=== PATIENT | female | born 1935 | race Caucasian/White ===

== ENCOUNTER 2017-10-01 13:13 | Inpatient (IN) ==
[2017-10-01 13:59] LABS: Microscopic, Urine URINE MICROSCOPIC (MICROSCOPIC)
[2017-10-01 13:59] LABS: Basophils % 0.5 % (0.1-2.0); Eosinophils # 0.1 K/mm3 (0.0-0.4); Eosinophils % 1.9 % (0.1-12.0); Hematocrit 33.3 % (37.0-47.0); Hemoglobin 10.9 g/dL (12.2-16.2); Lymphocytes # 0.9 K/mm3 (0.7-4.5); Lymphocytes % 13.1 K/mm3 (10-50); Mean Corpuscular HGB Conc 32.6 g/dL (31.8-35.4); Mean Corpuscular Hemoglobin 26.4 pg (27.0-31.2); Mean Corpuscular Volume 80.8 fl (81-99); Monocytes # 0.5 K/mm3 (0.1-1.0); Monocytes % 6.9 % (1.7-9.3); Neutrophils % 77.5 % (37.0-80.0); Platelet Count 251 K/mm3 (142-424); Red Blood Count 4.13 M/mm3 (4.20-5.40); Red Cell Distribution Width 13.6 % (11.5-17.5); White Blood Count 6.5 K/mm3 (4.8-10.8)
[2017-10-01 14:00] LABS: Appearance,Urine CLEAR (Clear); Bilirubin,Urine Negative (Negative); Blood, Urine Negative (Negative); Color,Urine YELLOW (Yellow); Glucose,Urine (UA) Negative (Negative); Ketones,Urine Negative (Negative); Leukocyte Esterase,Urine Negative (Negative); Protein,Urine Negative (Negative); Urobilinogen,Urine 0.2 EU/dl (0.2)
[2017-10-01 14:12] LABS: Albumin Level 3.2 gm/dL (3.4-5.0); Albumin/Globulin Ratio 0.9 (1.1-1.8); Anion Gap 12.2 mEq/L (5-15); Bilirubin,Total 0.3 mg/dL (0.2-1.0); Calcium 9.4 mg/dL (8.5-10.1); Globulin 3.6 gm/dl (1.3-3.2); Potassium 3.2 mmoL/L (3.5-5.1); Total Protein,Serum 6.8 gm/dL (6.4-8.2)
[2017-10-01 14:13] LABS: Bacteria,Urine 1+ /lpf; Squamous Epithelial Cell,Urine Occasional #/hpf (0-5); WBC,Urine Occasional #/hpf (0-3)
--- NOTE | 2017-10-01 14:40 | Emergency Department Note ---
ED Disposition Clinical Impression: Hyponatremia, Weakness, Hypokalemia Anemia Qualifiers: Anemia type: other cause Other causes of anemia: other cause, not classified Qualified Code(s): D64.89 - Other specified anemias Disposition: Admitted As Inpatient Condition on Discharge: Fair Time of Disposition: 14:39 - Critical Care Critical Care Time: No Attestation: On 10/01/17, the high probability of a clinically significant, sudden or life threatening deterioration of the following system(s) required my full and direct attention, intervention and personal management. The time I documented below is in addition to time spent performing reported procedures but includes the following listed in this critical care notation. Medical Decision Making - Medical Records Medical records reviewed: Yes: I reviewed the patient's medical records. - Rogelio Inquiry Pt receiving controlled substance: No Vital Signs: 10/01/17 13:18 10/01/17 14:51 10/01/17 15:05 Temperature 98.5 F 98.7 F 98.5 F Temperature Source Oral Oral Oral Pulse Rate 61 Pulse Rate [Right Brachial] 70 72 Respiratory Rate 20 18 20 Blood Pressure 130/65 Blood Pressure [Right Arm] 160/65 148/57 Blood Pressure Mean [Right Arm] 96 87 Blood Pressure Source Automatic Cuff Blood Pressure Source [Right Arm] Automatic Cuff Automatic Cuff Blood Pressure Position Sitting Blood Pressure Position [Right Arm] Supine Sitting 02 Sat by Pulse Oximetry 98 97 Oxygen Delivery Method Room Air Room Air Room Air - Lab Data Lab results reviewed: Yes: I reviewed the patient's lab results. Lab Results 10/01/17 13:45: WBC 6.5, RBC 4.13 L, Hgb 10.9 L, Hct 33.3 L, MCV 80.8 L, MCH 26.4 L, MCHC 32.6, RDW 13.6, Plt Count 251, MPV 8.0, Neut % (Auto) 77.5, Lymph % (Auto) 13.1, [place] % (Auto) 6.9, Eos % (Auto) 1.9, Baso % (Auto) 0.5, Neut # ( Auto) 5.0, Lymph # (Auto) 0.9, [place] # (Auto) 0.5, Eos # (Auto) 0.1, Baso # (Auto ) 0.0 10/01/17 13:45: Sodium 121 L, Potassium 3.2 L, Chloride 79 L, Carbon Dioxide 33 H, Anion Gap 12.2, BUN 15 D, Creatinine 0.73 D, Estimated Creat Clear 45, Estimated GFR 76, Est GFR ( Amer) 92 D, Glucose 121 H, Calcium 9.4, Total Bilirubin 0.3, AST 25, ALT 20, Alkaline Phosphatase 95, Total Protein 6.8 , Albumin 3.2 L, Globulin 3.6 H, Albumin/Globulin Ratio 0.9 L 10/01/17 13:45: PT 28.9 H, INR 2.65 H, APTT 42.9 H 10/01/17 13:45: B-Natriuretic Peptide 611 H 10/01/17 13:55: Urine Color Yellow, Urine Appearance Clear, Urine pH 7.0, Ur Specific [place] 1.010, Urine Protein Negative, Urine Glucose (UA) Negative, Urine Ketones Negative, Urine Blood Negative, Urine Nitrate Negative, Urine Bilirubin Negative, Urine Urobilinogen 0.2, Ur Leukocyte Esterase Negative, Urine WBC Occasional, Ur Squamous Epith Cells Occasional, Urine Bacteria 1+ Result diagrams: 10/01/17 13:45 10/01/17 13:45 Orders (Tests/Meds): ED MEDICATIONS Generic Name Dose Route Start Last Admin Trade Name Julesq PRN Reason Stop Dose Admin Aspirin 81 mg 10/02/17 09:00 Aspirin 81mg Enteric Coated Tablet PO 11/01/17 08:59 DAILY KIM Diltiazem HCl 240 mg 10/01/17 21:00 Cardizem Er 240mg Capsule PO 10/31/17 20:59 BID KIM Glimepiride 2 mg 10/02/17 09:00 Amaryl 2mg Tablet PO 11/01/17 08:59 DAILY KIM Isosorbide Mononitrate 60 mg 10/01/17 21:00 Imdur 60mg Er Tablet PO 10/31/17 20:59 BID KIM Levothyroxine Sodium 75 mcg 10/02/17 09:00 Synthroid 75mcg (0.075mg) Tablet PO 11/01/17 08:59 DAILY KIM Loratadine 10 mg 10/02/17 09:00 Claritin 10mg Tablet PO 11/01/17 08:59 DAILY KIM Lorazepam 0.5 mg 10/01/17 21:00 Ativan 0.5mg Tablet PO 10/31/17 20:59 HS KIM Metformin HCl 500 mg 10/01/17 17:30 10/01/17 16:40 Metformin 500mg Tablet PO 10/31/17 17:29 500 mg BIDWM KIM Administration Nitroglycerin 0.4 mg 10/01/17 15:08 Nitrostat 0.4mg Sl Tablet SL 10/31/17 15:07 [id number] PRN Chest Pain Pat Own Med 10 mg 10/01/17 21:00 Bisoprolol 10 Mg PO 10/31/17 20:59 BID KIM Pat Own Med 150 mg 10/02/17 21:00 Ranitidine 150 Mg PO 11/01/17 20:59 HS KIM Pat Own Med Areds 1 each 10/01/17 21:00 2 PO 10/31/17 20:59 BID [facility] Warfarin Sodium 2 mg 10/05/17 11:00 Coumadin 2mg Tablet PO 11/04/17 10:59 [id number] [facility] Warfarin Sodium 3 mg 10/02/17 11:00 Coumadin 2mg Tablet PO 11/01/17 10:59 [id number] [facility] Zolpidem Tartrate 10 mg 10/01/17 17:13 Ambien 10mg Tablet PO 10/31/17 17:12 HSP PRN Sleep Discontinued Medications Generic Name Dose Route Start Last Admin Trade Name Freq PRN Reason Stop Dose Admin Zolpidem Tartrate 10 mg 10/01/17 15:08 Ambien 10mg Tablet PO 10/31/17 15:07 ONCE [facility] - Physician Consults Physician Consulted: Dr Osborne covering for Dr Tejeda Time: 14:40 Reason -: Admission, Pt condition - Reevaluation(s) Time: 14:39 Reevaluation #1: On reevaluation patient appears medically stable, no acute distress. She will be admitted for reevaluation of her hyponatremia and inpatient treatment. Weakness HPI - General Chief complaint: Weakness Stated complaint: weakness nausea not eating Time Seen by Provider: 10/01/17 13:35 Mode of Arrival: Family Vehicle Limitations: No Limitations Description of Symptoms (Recalled from ER Triage Doc. by RN): C/O WEAKNESS, NAUSEA AND POOR APPETITE. SEEN BY DR TEJEDA THURSDAY AND HAD LAB WORK. DR SANTOS CALLED HER AND TOLD HER SHE HAD LOW SODIUM AND TO STOP HER ENTRESTO AND HAVE REPEAT LAB WORK IN TWO WEEKS - History of Present Illness HPI Narrative: Patient is seen Dr. Tejeda on Thursday for same symptoms, which are lethargy, decreased appetite, as family was suspected patient could be again hyponatremic. Patient has a history of similar episodes, in the past, being hospitalized with severe hyponatremia in March 2017. Dr. Tejeda instructed the patient to discontinue Entresto on Thursday, because of the blood work obtained at that time. As patient feels no better her family decided to bring her to the emergency room for additional workup. The past 2 days the patient has not eaten any solid food or liquids, according to family. MD Complaint: generalized weakness Onset (ago): week(s) (1) Duration: constant Location: generalized Severity scale (1-10): 8 Associated symptoms: denies other symptoms - Related Data Home Medications Medication Instructions Recorded Confirmed aspirin 81 mg tablet,delayed 81 mg PO DAILY 05/04/17 10/01/17 release glimepiride 2 mg tablet 2 mg PO DAILY 05/04/17 10/01/17 isosorbide mononitrate ER 60 mg 60 mg PO BID tab 05/04/17 10/01/17 tablet,extended release 24 hr levothyroxine 75 mcg tablet 75 mcg PO DAILY tab 05/04/17 10/01/17 lorazepam 0.5 mg tablet 0.5 mg PO HS 05/04/17 10/01/17 warfarin 2 mg tablet 2 mg PO MO 05/04/17 10/01/17 zolpidem 10 mg tablet 10 mg PO DAILYP PRN tab 05/04/17 10/01/17 bisoprolol fumarate 10 mg tablet 10 mg PO BID tab 07/21/17 10/01/17 metformin 500 mg tablet 500 mg PO BID 07/21/17 10/01/17 Ergocalciferol (Vitamin D2) 400 unit PO DAILY 10/01/17 10/01/17 [Vitamin D] Loratadine [Claritin 10mg Tablet] 10 mg PO DAILY 10/01/17 10/01/17 Nitroglycerin [Nitrostat 0.4mg SL 0.4 mg SL DIRECTED PRN 10/01/17 10/01/17 Tablet] Vit A/Vit C/Vit E/Zinc/Copper 1 each PO BID 10/01/17 10/01/17 [Preservision Areds Softgel] dilTIAZem HCl [Diltiazem 240mg 240 mg PO BID 10/01/17 10/01/17 24Hr ER Cap] raNITIdine HCl [Ranitidine HCl] 150 mg PO HS 10/01/17 10/01/17 Allergies Allergy/AdvReac Type Severity Reaction Status Date / Time clopidogrel [From Plavix] Allergy Unknown Verified 08/03/17 15:20 Iodinated Contrast Media - Allergy Unknown Verified 08/03/17 15:20 Oral and [Iodinated Contrast Media - IV Dye] Penicillins Allergy Unknown Verified 08/03/17 15:20 tolmetin [From Tolectin] Allergy Unknown Verified 08/03/17 15:20 [facility] [place] History I have reviewed the patient's past medical history: Yes Medical History: Reports:: Atrial Fibrillation, Cancer (BREAST CA), Congestive Heart Failure, Coronary Artery Disease, Diabetes Mellitus Type 2, Hypertension, Internal Pacemaker Denies:: Seizures Other Medical History: Denies: Blood Transfusion Reaction Laterality Cases: Right: Total Hip Replacement Other Surgeries: Yes: Cholecystectomy, Hysterectomy-Total, Pacemaker, Other (CEA , stents) Comment: cholecystectomy - Social History Smoking Status: Never smoker Alcohol Intake: never Alcohol Intake Frequency:: other - Psychiatric History Expresses thoughts of harming self/others: None Suicide Plan Description: No Plan ROS Obtained: Yes All systems reviewed & no additional complaints, Yes Systems reviewed as appropriate & no additional complaints - Constitutional Constitutional: Reports fatigue, Reports lethargy, Reports malaise Physical Exam - General General appearance: alert, in no apparent distress - Head Head exam: atraumatic, normocephalic, normal inspection - Neck Neck exam: Present: normal inspection, full ROM, trachea midline. Absent: meningismus, lymphadenopathy - Chest Chest inspection: Present: normal inspection, symmetric chest wall rise. Absent : tenderness - Respiratory Respiratory exam: Present: normal lung sounds bilaterally. Absent: respiratory distress - Cardiovascular Cardiovascular exam: Present: regular rate, normal rhythm. Absent: JVD - Abdominal Exam Abdominal exam: Present: soft, normal bowel sounds. Absent: distention, tenderness, guarding - Extremities Exam Extremities exam: Present: normal inspection, full ROM, normal capillary refill. Absent: calf tenderness - Back Exam Back exam: Present: normal inspection. Absent: tenderness - Neurological Exam Neurological exam: Present: alert, oriented X3 - Psychiatric Psychiatric exam: Present: normal affect, normal mood - Skin Skin exam: Present: warm, dry, intact, normal color
[2017-10-01 15:04] LABS: INR 2.65 (0.9-1.1); Prothrombin Time 28.9 seconds (9.4-11.8)
[2017-10-01 15:09] LABS: Activated Partial Thrombo Time 42.9 seconds (23.6-34.0)
--- NOTE | 2017-10-01 17:10 | History & Physical Report ---
*Admission Date: 10/01/17 *Chief complaint: Weakness and nausea *History of present illness: 82-year-old female presented to the emergency department today with worsening and weakness and nausea that initially developed 2 weeks ago. Patient had been seen by Dr. Che on Thursday of this week and was found to be hyponatremic. At that time she was advised to use stopped taking her Entresto. The patient discontinued this medicine as of Thursday but continued to feel progressively weaker with poor appetite and nausea. She presented to the emergency department where her hyponatremia has been unchanged. She has been admitted for observation. Patient is accompanied by her daughter who states the patient identified almost 2 weeks ago that she thought her sodium was low due to her symptoms of weakness, nausea, anorexia. The patient has a history of heart failure but denies any change in her level of dyspnea and states lower extremity swelling has been quite good recently. Upon reviewing her medicines the patient claims to be taking both furosemide and bumetanide. [facility] History I have reviewed the patient's past medical history: Yes Medical History: Reports:: Atrial Fibrillation, Cancer (BREAST CA), Congestive Heart Failure, Coronary Artery Disease, Diabetes Mellitus Type 2, Hypertension, Internal Pacemaker Denies:: MRSA, Seizures Other Medical History: Denies: Blood Transfusion Reaction Laterality Cases: Left: Mastectomy, Right: Arthroscopy Hip, Arthroscopy Knee, Cataract, Total Hip Replacement Other Surgeries: Yes: Cholecystectomy, Hysterectomy-Total, Pacemaker, Other (CEA , stents) Amputation: No Fractures: No - *Social History Educational Level: Completed High School Smoking Status: Never smoker Alcohol Intake: never Alcohol Intake Frequency:: other Occupational Status: retired Housing: house Household Members: none - Psychiatric History Expresses thoughts of harming self/others: None Suicide Plan Description: No Plan *Family Hx:: No significant family history Review of Systems - Review of Systems Review of systems:: pertinent systems reviewed and negative unless documented below - Constitutional Reports anorexia, Reports weakness, Denies chills - *Cardiovascular Denies chest pain, Denies chest pain at rest, Denies generalized swelling - *Respiratory Reports cough, Reports shortness of breath Meds Home Medications Medication Instructions Recorded Confirmed Type aspirin 81 mg tablet,delayed 81 mg PO DAILY 05/04/17 10/01/17 History release glimepiride 2 mg tablet 2 mg PO DAILY 05/04/17 10/01/17 History isosorbide mononitrate ER 60 mg 60 mg PO BID tab 05/04/17 10/01/17 History tablet,extended release 24 hr levothyroxine 75 mcg tablet 75 mcg PO DAILY tab 05/04/17 10/01/17 History lorazepam 0.5 mg tablet 0.5 mg PO HS 05/04/17 10/01/17 History warfarin 2 mg tablet 2 mg PO MO 05/04/17 10/01/17 History zolpidem 10 mg tablet 10 mg PO DAILYP PRN tab 05/04/17 10/01/17 History bisoprolol fumarate 10 mg tablet 10 mg PO BID tab 07/21/17 10/01/17 History metformin 500 mg tablet 500 mg PO BID 07/21/17 10/01/17 History Ergocalciferol (Vitamin D2) 400 unit PO DAILY 10/01/17 10/01/17 History [Vitamin D] Loratadine [Claritin 10mg Tablet] 10 mg PO DAILY 10/01/17 10/01/17 History Nitroglycerin [Nitrostat 0.4mg SL 0.4 mg SL DIRECTED PRN 10/01/17 10/01/17 History Tablet] Vit A/Vit C/Vit E/Zinc/Copper 1 each PO BID 10/01/17 10/01/17 History [Preservision Areds Softgel] dilTIAZem HCl [Diltiazem 240mg 240 mg PO BID 10/01/17 10/01/17 History 24Hr ER Cap] raNITIdine HCl [Ranitidine HCl] 150 mg PO HS 10/01/17 10/01/17 History Allergies Allergy/AdvReac Type Severity Reaction Status Date / Time clopidogrel [From Plavix] Allergy Unknown Verified 08/03/17 15:20 Iodinated Contrast Media - Allergy Unknown Verified 08/03/17 15:20 Oral and [Iodinated Contrast Media - IV Dye] Penicillins Allergy Unknown Verified 08/03/17 15:20 tolmetin [From Tolectin] Allergy Unknown Verified 08/03/17 15:20 Exam Vital signs and Labs for Last 24 Hours: Temp Pulse Resp BP Pulse Ox 97.9 F 68 20 160/73 98 10/01/17 15:21 10/01/17 15:21 10/01/17 15:21 10/01/17 15:21 10/01/17 15:21 Laboratory Results - last 24 hr 10/01/17 13:45: WBC 6.5, RBC 4.13 L, Hgb 10.9 L, Hct 33.3 L, MCV 80.8 L, MCH 26.4 L, MCHC 32.6, RDW 13.6, Plt Count 251, MPV 8.0, Neut % (Auto) 77.5, Lymph % (Auto) 13.1, [place] % (Auto) 6.9, Eos % (Auto) 1.9, Baso % (Auto) 0.5, Neut # ( Auto) 5.0, Lymph # (Auto) 0.9, [place] # (Auto) 0.5, Eos # (Auto) 0.1, Baso # (Auto ) 0.0 10/01/17 13:45: Sodium 121 L, Potassium 3.2 L, Chloride 79 L, Carbon Dioxide 33 H, Anion Gap 12.2, BUN 15 D, Creatinine 0.73 D, Estimated Creat Clear 45, Estimated GFR 76, Est GFR ( Amer) 92 D, Glucose 121 H, Calcium 9.4, Total Bilirubin 0.3, AST 25, ALT 20, Alkaline Phosphatase 95, Total Protein 6.8 , Albumin 3.2 L, Globulin 3.6 H, Albumin/Globulin Ratio 0.9 L 10/01/17 13:45: PT 28.9 H, INR 2.65 H, APTT 42.9 H 10/01/17 13:45: B-Natriuretic Peptide 611 H 10/01/17 13:55: Urine Color Yellow, Urine Appearance Clear, Urine pH 7.0, Ur Specific [place] 1.010, Urine Protein Negative, Urine Glucose (UA) Negative, Urine Ketones Negative, Urine Blood Negative, Urine Nitrate Negative, Urine Bilirubin Negative, Urine Urobilinogen 0.2, Ur Leukocyte Esterase Negative, Urine WBC Occasional, Ur Squamous Epith Cells Occasional, Urine Bacteria 1+ 10/01/17 16:34: POC Glucose 111 H I & O for Last 24 hours: Intake & Output 09/29/17 09/30/17 10/01/17 10/02/17 11:59 11:59 11:59 11:59 Weight 155 lb 4 oz Narrative: Pleasant elderly female in no distress. She is dressed in her pajamas. She looks quite comfortable. Speech is fluent and conversant. Oropharynx is moist. Neck is without any lymphadenopathy or jugular venous distention. Lungs are clear. Heart has a regular rate and rhythm. Abdomen is soft and nontender. Extremities have no edema this evening. H&P: Result - Labs Labs: Short CBC 10/01/17 Range/Units 13:45 WBC 6.5 (4.8-10.8) K/mm3 Hgb 10.9 L (12.2-16.2) g/dL Hct 33.3 L (37.0-47.0) % Plt Count 251 (142-424) K/mm3 BMP 10/01/17 13:45 Sodium 121 L Potassium 3.2 L Chloride 79 L Carbon Dioxide 33 H BUN 15 D Creatinine 0.73 D Glucose 121 H Calcium 9.4 Liver Function 10/01/17 Range/Units 13:45 Total Bilirubin 0.3 (0.2-1.0) mg/dL AST 25 (15-37) U/L ALT 20 (12-78) U/L Alkaline Phosphatase 95 (46-116) U/L Albumin 3.2 L (3.4-5.0) gm/dL Urine 10/01/17 Range/Units 13:55 Urine Color Yellow (Yellow) Urine Appearance Clear (Clear) Urine pH 7.0 (5.0-8.5) Ur Specific [place] 1.010 (1.005-1.030) Urine Protein Negative (Negative) Urine Glucose (UA) Negative (Negative) Assessment and Plan (1) Hyponatremia Current visit: Yes Status: Acute Category: Medical Code(s): E87.1 - Hypo- osmolality and hyponatremia (2) Weakness Current visit: Yes Status: Acute Category: Medical Code(s): R53.1 - Weakness - Assessment and plan all Dx Assessment and Plan for all problems:: Patient has been admitted for monitoring of worsening symptoms and repeat sodium in the morning. She will be ordered home medicines except diuretics at this time and her Entresto.
[2017-10-02 07:10] LABS: Anion Gap 8.9 mEq/L (5-15); Calcium 9.1 mg/dL (8.5-10.1)
[2017-10-02 07:13] LABS: INR 2.46 (0.9-1.1); Prothrombin Time 26.8 seconds (9.4-11.8)
[2017-10-02 07:17] LABS: Potassium 2.9 mmoL/L (3.5-5.1)
--- NOTE | 2017-10-02 07:32 | Pharmacy Consult Notes ---
[facility] Pharmacy VTE Monitoring - Patient Demographics Admission date: 10/01/17 Report Date: 10/02/17 Time: 07:32 Allergies/Adverse Reactions: Patient Allergies clopidogrel [From Plavix] Allergy (Unknown, Verified 08/03/17 15:20) Iodinated Contrast Media - Oral and [Iodinated Contrast Media - IV Dye] Allergy (Unknown, Verified 08/03/17 15:20) Penicillins Allergy (Unknown, Verified 08/03/17 15:20) tolmetin [From Tolectin] Allergy (Unknown, Verified 08/03/17 15:20) Height: 1.52 m Weight: 71.242 kg Patient Problems: Current Active Problems Hyponatremia (Acute) Weakness (Acute) Hypokalemia (Acute) Anemia (Acute) - VTE Risk Labs: VTE Related Lab Results Hgb 10.9 g/dL (12.2-16.2) L 10/01/17 13:45 Hct 33.3 % (37.0-47.0) L 10/01/17 13:45 Plt Count 251 K/mm3 (142-424) 10/01/17 13:45 PT 26.8 seconds (9.4-11.8) H 10/02/17 06:23 INR 2.46 (0.9-1.1) H 10/02/17 06:23 APTT 42.9 seconds (23.6-34.0) H 10/01/17 13:45 BUN 11 mg/dL (7-18) D 10/02/17 06:23 Creatinine 0.55 mg/dL (0.55-1.02) D 10/02/17 06:23 Estimated Creat Clear 47 mL/min (0-300) 10/02/17 06:23 Was VTE Risk Assessment Performed: Yes VTE Score: 1 - Prophylaxis VTE Prophylaxis Ordered?: Yes Types of VTE Prophylaxis: Pharmacological Pharmacologic Type: Warfarin - VTE Diagnosis Confirmed Treatment or plan recommended: Continue Current Treatment
--- NOTE | 2017-10-02 08:07 | Progress Note ---
Internal Medicine - PN: Subj *Date: 10/02/17 *Time: 08:05 Interval history: Patient continues to feel somewhat weak, but denies fever or chest pain. She has no breathing troubles. Exam Vital signs and Labs for Last 24 Hours: Temp Pulse Resp BP Pulse Ox 97.8 F 60 18 126/62 98 10/02/17 07:37 10/02/17 07:37 10/02/17 07:37 10/02/17 07:37 10/02/17 07:37 Laboratory Results - last 24 hr 10/01/17 13:45: WBC 6.5, RBC 4.13 L, Hgb 10.9 L, Hct 33.3 L, MCV 80.8 L, MCH 26.4 L, MCHC 32.6, RDW 13.6, Plt Count 251, MPV 8.0, Neut % (Auto) 77.5, Lymph % (Auto) 13.1, [place] % (Auto) 6.9, Eos % (Auto) 1.9, Baso % (Auto) 0.5, Neut # ( Auto) 5.0, Lymph # (Auto) 0.9, [place] # (Auto) 0.5, Eos # (Auto) 0.1, Baso # (Auto ) 0.0 10/01/17 13:45: Sodium 121 L, Potassium 3.2 L, Chloride 79 L, Carbon Dioxide 33 H, Anion Gap 12.2, BUN 15 D, Creatinine 0.73 D, Estimated Creat Clear 45, Estimated GFR 76, Est GFR ( Amer) 92 D, Glucose 121 H, Calcium 9.4, Total Bilirubin 0.3, AST 25, ALT 20, Alkaline Phosphatase 95, Total Protein 6.8 , Albumin 3.2 L, Globulin 3.6 H, Albumin/Globulin Ratio 0.9 L 10/01/17 13:45: PT 28.9 H, INR 2.65 H, APTT 42.9 H 10/01/17 13:45: B-Natriuretic Peptide 611 H 10/01/17 13:55: Urine Color Yellow, Urine Appearance Clear, Urine pH 7.0, Ur Specific [place] 1.010, Urine Protein Negative, Urine Glucose (UA) Negative, Urine Ketones Negative, Urine Blood Negative, Urine Nitrate Negative, Urine Bilirubin Negative, Urine Urobilinogen 0.2, Ur Leukocyte Esterase Negative, Urine WBC Occasional, Ur Squamous Epith Cells Occasional, Urine Bacteria 1+ 10/01/17 16:34: POC Glucose 111 H 10/01/17 20:43: POC Glucose 107 10/02/17 06:22: POC Glucose 77 10/02/17 06:23: PT 26.8 H, INR 2.46 H 10/02/17 06:23: Sodium 121 L, Potassium 2.9 L*, Chloride 81 L, Carbon Dioxide 34 H, Anion Gap 8.9, BUN 11 D, Creatinine 0.55 D, Estimated Creat Clear 47, Estimated GFR 105, Est GFR ( Amer) 127 D, Glucose 70 L D, Calcium 9.1 I & O for Last 24 hours: Intake & Output 09/29/17 09/30/17 10/01/17 10/02/17 11:59 11:59 11:59 11:59 Intake Total 840 / 840 Output Total 400 / 400 Balance 440 / 440 Weight 157 lb 1 oz Narrative: Heart rate irregular, abdomen soft, lungs are clear. No edema noted. Patient is alert, pleasant and oriented. Assessment and Plan (1) Hyponatremia Current visit: Yes Status: Acute Category: Medical Code(s): E87.1 - Hypo- osmolality and hyponatremia (2) Weakness Current visit: Yes Status: Acute Category: Medical Code(s): R53.1 - Weakness (3) Hypokalemia Current visit: Yes Status: Acute Category: Medical Code(s): E87.6 - Hypokalemia - Assessment and plan all Dx Assessment and Plan for all problems:: Plan will be to replace potassium today and give a 12 hour infusion of normal saline at 75 mL's per hour Check labs tomorrow morning. If potassium and sodium are improving was at her discharge home. I would discharge on only 1 diuretic and stop Entresto completely. I would see her in my office in 1 week.
[2017-10-03 06:16] LABS: Anion Gap 12.2 mEq/L (5-15); Calcium 9.2 mg/dL (8.5-10.1); Potassium 4.2 mmoL/L (3.5-5.1)
--- NOTE | 2017-10-03 07:33 | Discharge Summary ---
General - General Admission date:: 10/01/17 Discharge date: 10/04/17 HPI HPI: 82-year-old female presented to the emergency department today with worsening and weakness and nausea that initially developed 2 weeks ago. Patient had been seen by Dr. Che on Thursday of this week and was found to be hyponatremic. At that time she was advised to use stopped taking her Entresto. The patient discontinued this medicine as of Thursday but continued to feel progressively weaker with poor appetite and nausea. She presented to the emergency department where her hyponatremia has been unchanged. She has been admitted for observation. Patient is accompanied by her daughter who states the patient identified almost 2 weeks ago that she thought her sodium was low due to her symptoms of weakness, nausea, anorexia. The patient has a history of heart failure but denies any change in her level of dyspnea and states lower extremity swelling has been quite good recently. Upon reviewing her medicines the patient claims to be taking both furosemide and bumetanide. Hospital Course Hospital Course: For full discharge summary please see discharge summary dictated October 04, 2017. Objective Vital signs: Temp Pulse Resp BP Pulse Ox 97.9 F 60 20 130/71 91 L 10/03/17 03:55 10/03/17 03:55 10/03/17 03:55 10/03/17 03:55 10/03/17 03:55 Results Labs on day of discharge: Labs from last 24 hours 10/03/17 10/03/17 10/02/17 06:05 05:35 21:14 Sodium 120 L Potassium 4.2 D Chloride 82 L Carbon Dioxide 30 Anion Gap 12.2 BUN 14 D Creatinine 0.58 Estimated Creat Clear 48 Estimated GFR 99 Est GFR ( Amer) 120 Glucose 78 POC Glucose 97 120 H Calcium 9.2 10/02/17 10/02/17 16:33 08:40 Sodium Potassium Chloride Carbon Dioxide Anion Gap BUN Creatinine Estimated Creat Clear Estimated GFR Est GFR ( Amer) Glucose POC Glucose 131 H 227 H Calcium DS: Diagnosis - Discharge Diagnosis (1) Hyponatremia Status: Acute (2) Weakness Status: Acute (3) Hypokalemia Status: Acute Discharge Plan - Patient Discharge Instructions Patient Instructions: Anemia, Hyponatremia-Adult, Hypokalemia - Follow up Plan Follow up with: Gui Marinelli MD [Staff Physician] - 1 week Filemon Che MD [Primary Care Provider] - 2 weeks Disposition: Home, Self-Long Term Medications: Home Medications Medication Instructions Recorded Confirmed Type aspirin 81 mg tablet,delayed 81 mg PO DAILY 05/04/17 10/01/17 History release glimepiride 2 mg tablet 2 mg PO DAILY 05/04/17 10/01/17 History isosorbide mononitrate ER 60 mg 60 mg PO BID tab 05/04/17 10/01/17 History tablet,extended release 24 hr levothyroxine 75 mcg tablet 75 mcg PO DAILY tab 05/04/17 10/01/17 History lorazepam 0.5 mg tablet 0.5 mg PO HS 05/04/17 10/01/17 History warfarin 2 mg tablet 2 mg PO MO 05/04/17 10/01/17 History zolpidem 10 mg tablet 10 mg PO DAILYP PRN tab 05/04/17 10/01/17 History bisoprolol fumarate 10 mg tablet 10 mg PO BID tab 07/21/17 10/01/17 History metformin 500 mg tablet 500 mg PO BID 07/21/17 10/01/17 History Ergocalciferol (Vitamin D2) 400 unit PO DAILY 10/01/17 10/01/17 History [Vitamin D] Loratadine [Claritin 10mg Tablet] 10 mg PO DAILY 10/01/17 10/01/17 History Nitroglycerin [Nitrostat 0.4mg SL 0.4 mg SL DIRECTED PRN 10/01/17 10/01/17 History Tablet] Vit A/Vit C/Vit E/Zinc/Copper 1 each PO BID 10/01/17 10/01/17 History [Preservision Areds Softgel] dilTIAZem HCl [Diltiazem 240mg 240 mg PO BID 10/01/17 10/01/17 History 24Hr ER Cap] raNITIdine HCl [Ranitidine HCl] 150 mg PO HS 10/01/17 10/01/17 History Prescriptions/Medication Reconciliation: New Furosemide [Lasix 40mg tablet] 40 mg PO BIDL tablet Potassium Chloride [Klor-con 20 mEq tablet] 20 meq PO BID #60 tab Continue isosorbide mononitrate ER 60 mg tablet,extended release 24 hr 60 mg PO BID tab levothyroxine 75 mcg tablet 75 mcg PO DAILY tab lorazepam 0.5 mg tablet 0.5 mg PO HS zolpidem 10 mg tablet 10 mg PO DAILYP PRN tab PRN Reason: Sleep metformin 500 mg tablet 500 mg PO BID aspirin 81 mg tablet,delayed release 81 mg PO DAILY warfarin 2 mg tablet 2 mg PO MO bisoprolol fumarate 10 mg tablet 10 mg PO BID tab Vit A/Vit C/Vit E/Zinc/Copper [Preservision Areds Softgel] 1 each PO BID Nitroglycerin [Nitrostat 0.4mg SL Tablet] 0.4 mg SL DIRECTED PRN PRN Reason: Chest Pain Ergocalciferol (Vitamin D2) [Vitamin D] 400 unit PO DAILY Loratadine [Claritin 10mg Tablet] 10 mg PO DAILY raNITIdine HCl [Ranitidine HCl] 150 mg PO HS Glimepiride [Amaryl] 2 mg PO DAILY #0 dilTIAZem HCl [Diltiazem 240mg 24Hr ER Cap] 240 mg PO BID
--- NOTE | 2017-10-03 07:38 | Progress Note ---
Internal Medicine - PN: Subj *Date: 10/03/17 *Time: 07:37 Interval history: Patient is without complaints this morning. She admits she feels better than when she came in. Her appetite is still rather poor. She did get confused overnight about her location. When she awoke she thought she was at home but then gradually recognized that the object she was seeing her not actually in her home. She came to her room door which caught the attention of the nurse who redirected her. Exam Vital signs and Labs for Last 24 Hours: Temp Pulse Resp BP Pulse Ox 97.9 F 60 20 130/71 91 L 10/03/17 03:55 10/03/17 03:55 10/03/17 03:55 10/03/17 03:55 10/03/17 03:55 Laboratory Results - last 24 hr 10/02/17 08:40: POC Glucose 227 H 10/02/17 16:33: POC Glucose 131 H 10/02/17 21:14: POC Glucose 120 H 10/03/17 05:35: Sodium 120 L, Potassium 4.2 D, Chloride 82 L, Carbon Dioxide 30 , Anion Gap 12.2, BUN 14 D, Creatinine 0.58, Estimated Creat Clear 48, Estimated GFR 99, Est GFR ( Amer) 120, Glucose 78, Calcium 9.2 10/03/17 06:05: POC Glucose 97 I & O for Last 24 hours: Intake & Output 09/30/17 10/01/17 10/02/17 10/03/17 11:59 11:59 11:59 11:59 Intake Total 1200 / 1200 1400 / 1400 Output Total 400 / 400 750 / 750 Balance 800 / 800 650 / 650 Weight 157 lb 1 oz 159 lb 1 oz Microbiology Reports for the Last 24 Hours: Microbiology 10/02/17 06:30 Sputum - Expectorated Sputum Gram Stain - Final Narrative: She is in no distress. Lungs are clear. Heart has a regular rate and rhythm. Assessment and Plan (1) Hyponatremia Current visit: Yes Status: Acute Category: Medical Code(s): E87.1 - Hypo- osmolality and hyponatremia (2) Weakness Current visit: Yes Status: Acute Category: Medical Code(s): R53.1 - Weakness (3) Hypokalemia Current visit: Yes Status: Acute Category: Medical Code(s): E87.6 - Hypokalemia - Assessment and plan all Dx Assessment and Plan for all problems:: Patient is feeling better but sodium decreased slightly. She will be given her diuretic today with repeat sodium tomorrow.
[2017-10-04 05:57] LABS: Anion Gap 8.8 mEq/L (5-15); Calcium 9.2 mg/dL (8.5-10.1); Potassium 3.8 mmoL/L (3.5-5.1)
--- NOTE | 2017-10-04 07:11 | Discharge Summary ---
General - General Admission date:: 10/01/17 Discharge date: 10/04/17 HPI HPI: 82-year-old female presented to the emergency department today with worsening and weakness and nausea that initially developed 2 weeks ago. Patient had been seen by Dr. Che on Thursday of this week and was found to be hyponatremic. At that time she was advised to use stopped taking her Entresto. The patient discontinued this medicine as of Thursday but continued to feel progressively weaker with poor appetite and nausea. She presented to the emergency department where her hyponatremia has been unchanged. She has been admitted for observation. Patient is accompanied by her daughter who states the patient identified almost 2 weeks ago that she thought her sodium was low due to her symptoms of weakness, nausea, anorexia. The patient has a history of heart failure but denies any change in her level of dyspnea and states lower extremity swelling has been quite good recently. Upon reviewing her medicines the patient claims to be taking both furosemide and bumetanide. Hospital Course Hospital Course: Patient was admitted in the first night of admission was observed with follow- up sodium the next morning which remain unchanged at 121. Patient had fluids of normal saline added at 50 mL's per hour for 12 hours along with oral potassium replacement due to hypokalemia. The following morning her sodium actually decreased to 120 but potassium was now normal. Patient admitted she was feeling a little bit better but primary complaint of poor appetite and nausea persisted. Patient had also had an episode overnight of confusion where she got out of bed and forgot that she was in the hospital. Patient's furosemide was added back on to her regimen and she was given 40 mg twice daily on October 03. Following morning the patient's sodium had returned to 121. Her strength and ability to ambulate was better but she continued to complain of nausea. She had also had another episode of confusion overnight. Review of record showed her blood sugars to be on the low and most of the time with a single blood sugar of 72. Adjustments were made to the patient's glimepiride. On the morning of the the patient's sodium was back to 121 and her strength was better. Appetite still remained a little poor. Decision was made to discharge the patient to home however due to the episodes of confusion that were contributed to by being in the hospital. Patient will be discharged to home. She will follow-up with cardiology this week and Dr. Knight the following week. She will be restarted on Lasix. Her home dose was 80 mg each morning unless she was going to be outside the home at which point she was taking only 40 mg. Her glimepiride will be cut in half at discharge as well. Objective Vital signs: Temp Pulse Resp BP Pulse Ox 98.2 F 62 20 110/46 96 10/04/17 04:00 10/04/17 04:00 10/04/17 04:00 10/04/17 04:00 10/04/17 04:00 Results Labs on day of discharge: Labs from last 24 hours 10/04/17 10/04/17 10/03/17 06:33 05:35 21:57 Sodium 121 L Potassium 3.8 Chloride 85 L Carbon Dioxide 31 Anion Gap 8.8 BUN 12 Creatinine 0.60 Estimated Creat Clear 48 Estimated GFR 95 Est GFR ( Amer) 115 Glucose 72 L POC Glucose 80 96 Calcium 9.2 10/03/17 10/03/17 16:27 13:07 Sodium Potassium Chloride Carbon Dioxide Anion Gap BUN Creatinine Estimated Creat Clear Estimated GFR Est GFR ( Amer) Glucose POC Glucose 103 177 H Calcium Preliminary micro results at discharge 10/02/17 06:30 Sputum Culture - Preliminary Sputum - Expectorated Sputum Gram Positive Cocci DS: Diagnosis - Discharge Diagnosis (1) Hyponatremia Status: Acute (2) Weakness Status: Acute (3) Hypokalemia Status: Acute (4) Hypoglycemia Status: Acute Discharge Plan - Patient Discharge Instructions ACTIVITY: Continue current activity DIET: continue same diet Patient Instructions: Anemia, Hyponatremia-Adult, Hypokalemia - Follow up Plan Follow up with: Gui Marinelli MD [Staff Physician] - 1 week Filemon Che MD [Primary Care Provider] - 2 weeks Disposition: Home, Self-[facility] Medications: Home Medications Medication Instructions Recorded Confirmed Type aspirin 81 mg tablet,delayed 81 mg PO DAILY 05/04/17 10/01/17 History release glimepiride 2 mg tablet 2 mg PO DAILY 05/04/17 10/01/17 History isosorbide mononitrate ER 60 mg 60 mg PO BID tab 05/04/17 10/01/17 History tablet,extended release 24 hr levothyroxine 75 mcg tablet 75 mcg PO DAILY tab 05/04/17 10/01/17 History lorazepam 0.5 mg tablet 0.5 mg PO HS 05/04/17 10/01/17 History warfarin 2 mg tablet 2 mg PO MO 05/04/17 10/01/17 History zolpidem 10 mg tablet 10 mg PO DAILYP PRN tab 05/04/17 10/01/17 History bisoprolol fumarate 10 mg tablet 10 mg PO BID tab 07/21/17 10/01/17 History metformin 500 mg tablet 500 mg PO BID 07/21/17 10/01/17 History Ergocalciferol (Vitamin D2) 400 unit PO DAILY 10/01/17 10/01/17 History [Vitamin D] Loratadine [Claritin 10mg Tablet] 10 mg PO DAILY 10/01/17 10/01/17 History Nitroglycerin [Nitrostat 0.4mg SL 0.4 mg SL DIRECTED PRN 10/01/17 10/01/17 History Tablet] Vit A/Vit C/Vit E/Zinc/Copper 1 each PO BID 10/01/17 10/01/17 History [Preservision Areds Softgel] dilTIAZem HCl [Diltiazem 240mg 240 mg PO BID 10/01/17 10/01/17 History 24Hr ER Cap] raNITIdine HCl [Ranitidine HCl] 150 mg PO HS 10/01/17 10/01/17 History Prescriptions/Medication Reconciliation: New Furosemide [Lasix 40mg tablet] 40 mg PO BIDL tablet Potassium Chloride [Klor-con 20 mEq tablet] 20 meq PO BID #60 tab Continue isosorbide mononitrate ER 60 mg tablet,extended release 24 hr 60 mg PO BID tab levothyroxine 75 mcg tablet 75 mcg PO DAILY tab lorazepam 0.5 mg tablet 0.5 mg PO HS zolpidem 10 mg tablet 10 mg PO DAILYP PRN tab PRN Reason: Sleep metformin 500 mg tablet 500 mg PO BID aspirin 81 mg tablet,delayed release 81 mg PO DAILY warfarin 2 mg tablet 2 mg PO MO bisoprolol fumarate 10 mg tablet 10 mg PO BID tab Vit A/Vit C/Vit E/Zinc/Copper [Preservision Areds Softgel] 1 each PO BID Nitroglycerin [Nitrostat 0.4mg SL Tablet] 0.4 mg SL DIRECTED PRN PRN Reason: Chest Pain Ergocalciferol (Vitamin D2) [Vitamin D] 400 unit PO DAILY Loratadine [Claritin 10mg Tablet] 10 mg PO DAILY raNITIdine HCl [Ranitidine HCl] 150 mg PO HS Glimepiride [Amaryl] 2 mg PO DAILY #0 dilTIAZem HCl [Diltiazem 240mg 24Hr ER Cap] 240 mg PO BID
[2017-10-04 08:12] VITALS: BP 143/62
== END 2017-10-04 09:05 | disposition home or self-care (01) ==
LOC: 2ND 13:13 → ER 13:13 → OBSVTOIN 14:40 → 2ND 15:10
PROVIDERS: ADMIT Family Medicine; ATTEND Internal Medicine Adolescent Medicine

== ENCOUNTER 2017-10-11 20:23 | Observation (INO) ==
--- NOTE | 2017-10-11 20:48 | Emergency Department Note ---
ED Disposition Clinical Impression: Rapid atrial fibrillation, Hypoglycemia Disposition: Still a Patient Condition on Discharge: Good Referrals: Filemon Che MD [Primary Care Provider] - - Critical Care Critical Care Time: No Attestation: On 10/11/17, the high probability of a clinically significant, sudden or life threatening deterioration of the following system(s) required my full and direct attention, intervention and personal management. The time I documented below is in addition to time spent performing reported procedures but includes the following listed in this critical care notation. Medical Decision Making - Rogelio Inquiry Pt receiving controlled substance: No Vital Signs: 10/11/17 20:29 10/11/17 21:54 Temperature 99.2 F Temperature Source Oral Pulse Rate [Right Radial] 86 99 H Respiratory Rate 18 17 Blood Pressure [Right Arm] 165/105 175/86 Blood Pressure Mean [Right Arm] 125 115 Blood Pressure Source [Right Arm] Manual Cuff/ Auscultation Automatic Cuff Blood Pressure Position [Right Arm] Sitting Supine 02 Sat by Pulse Oximetry 97 96 Oxygen Delivery Method Room Air Room Air - Lab Data Lab Results 10/11/17 21:00: B-Natriuretic Peptide 713 H 10/11/17 21:01: WBC 6.5, RBC 3.50 L, Hgb 9.2 L, Hct 28.9 L, MCV 82.5, MCH 26.4 L , MCHC 32.0, RDW 14.2, Plt Count 290, MPV 7.1 L, Neut % (Auto) 71.2, Lymph % ( Auto) 17.7, [place] % (Auto) 6.3, Eos % (Auto) 4.0, Baso % (Auto) 0.8, Neut # (Auto ) 4.7, Lymph # (Auto) 1.2, [place] # (Auto) 0.4, Eos # (Auto) 0.3, Baso # (Auto) 0.1 10/11/17 21:01: Troponin I < 0.02, Amylase 60 10/11/17 21:01: Sodium 134 L, Potassium 4.9, Chloride 99, Carbon Dioxide 26, Anion Gap 13.9, BUN 16, Creatinine 0.70, Estimated Creat Clear 45, Estimated GFR 80, Est GFR ( Amer) 96, Glucose 54 L, Calcium 9.6, Total Bilirubin 0.6, AST 43 H, ALT 32, Alkaline Phosphatase 99, Total Protein 6.6, Albumin 3.4, Globulin 3.2, Albumin/Globulin Ratio 1.1, Lipase 328 10/11/17 21:01: Lactic Acid 0.7 Result diagrams: 10/11/17 21:01 10/11/17 21:01 Orders (Tests/Meds): ED MEDICATIONS Discontinued Medications Generic Name Dose Route Start Last Admin Trade Name Kika PRN Reason Stop Dose Admin Dextrose 50 ml 10/11/17 21:48 10/11/17 21:56 Dextrose 50% 50ml Syringe IVP 10/11/17 21:49 50 ml ONCE ONE Administration Diltiazem HCl 30 mg 10/11/17 21:57 Cardizem 30mg Tablet PO 10/11/17 21:58 ONCE ONE Furosemide 40 mg 10/11/17 21:57 Lasix 20mg/2ml Vial IV 10/11/17 21:58 ONCE ONE ORDERS Category Date Time Status XR chest 2V Stat Exams 10/11/17 20:44 Taken PT/INR [Prothrombin Time INR] Stat Lab 10/11/17 21:53 Ordered Blood Culture Stat Micro 10/11/17 21:01 Received - Radiology Data #1 Image(s): Chest Image Reviewed: Yes I reviewed the patient's radiology image blunting R CPA, no change - ECG Data Tracing #1 EKG interpreted by Dariusz Freire MD: Rhythm: Atrial fibrillation with rapid ventricular response Rate: 111 [place]: normal Ectopy: none Conduction: normal ST Segment Changes: Nonspecific T Wave Changes: Nonspecific Q Waves: none No evidence of acute ischemia or injury - Physician Consults Physician Consulted: Chinedu Time: 21:59 Reason -: Admission Comment/Response: Agrees to admit the patient to the hospital. We discussed the patient's clinical information, including history, exam, laboratory and radiology results and ED course. Per hospital procedure, I will write temporary bridge inpatient orders on the patient. Specific orders requested by the admitting physician: Diltiazem 30 mg p.o. 1, Lasix 40 mg IV 1, admit to observation General Adult HPI - General Chief complaint: Shortness of Breath/Dyspnea Stated complaint: dizziness, tingling in arms, chest discomfort Time Seen by Provider: 10/11/17 20:57 Mode of Arrival: Ambulatory Limitations: No Limitations Description of Symptoms (Recalled from ER Triage Doc. by RN): pt felt hot with arm tingling. recent admission for chf, took off furosemide, and diltiazem. - History of Present Illness HPI narrative: Rapid irregular heartbeat started this evening. Associated with shortness of breath, discomfort in both arms, feeling hot, and tingling in her hands. Blood pressure was high at home. Heart rate was in the 115-120 range. History of paroxysmal atrial fibrillation. On warfarin. Recently admitted to the hospital here 10/01/17 through 10/04/17. She had hyponatremia, weakness, hypokalemia, and hypoglycemia. She had follow-up with Dr. Marinelli in the office on 10/05/17. Diltiazem was stopped on Thursday 6 days ago and Lasix stopped on Thursday 5 days ago due to edema and dehydration. - Related Data Home Medications Medication Instructions Recorded Confirmed aspirin 81 mg tablet,delayed 81 mg PO DAILY 05/04/17 10/11/17 release isosorbide mononitrate ER 60 mg 60 mg PO BID tab 05/04/17 10/11/17 tablet,extended release 24 hr levothyroxine 75 mcg tablet 75 mcg PO DAILY tab 05/04/17 10/11/17 lorazepam 0.5 mg tablet 0.5 mg PO HS 05/04/17 10/11/17 warfarin 2 mg tablet 2 mg PO MO 05/04/17 10/11/17 zolpidem 10 mg tablet 10 mg PO DAILYP PRN tab 05/04/17 10/11/17 bisoprolol fumarate 10 mg tablet 10 mg PO BID tab 07/21/17 10/11/17 metformin 500 mg tablet 500 mg PO BID 07/21/17 10/11/17 Ergocalciferol (Vitamin D2) 400 unit PO DAILY 10/01/17 10/11/17 [Vitamin D] Loratadine [Claritin 10mg Tablet] 10 mg PO DAILY 10/01/17 10/11/17 Nitroglycerin [Nitrostat 0.4mg SL 0.4 mg SL DIRECTED PRN 10/01/17 10/11/17 Tablet] Vit A/Vit C/Vit E/Zinc/Copper 1 each PO BID 10/01/17 10/11/17 [Preservision Areds Softgel] raNITIdine HCl [Ranitidine HCl] 150 mg PO HS 10/01/17 10/11/17 Potassium Chloride [Klor-con 20 20 meq PO BID 10/11/17 10/11/17 mEq tablet] Previous Rx's Medication Instructions Recorded Glimepiride [Amaryl] 2 mg PO DAILY #0 10/04/17 Allergies Allergy/AdvReac Type Severity Reaction Status Date / Time clopidogrel [From Plavix] Allergy Unknown Verified 08/03/17 15:20 Iodinated Contrast Media - Allergy Unknown Verified 08/03/17 15:20 Oral and [Iodinated Contrast Media - IV Dye] Penicillins Allergy Unknown Verified 08/03/17 15:20 tolmetin [From Tolectin] Allergy Unknown Verified 08/03/17 15:20 [facility] History I have reviewed the patient's past medical history: Yes Medical History: Reports:: Atrial Fibrillation, Cancer (BREAST CA), Congestive Heart Failure, Coronary Artery Disease, Diabetes Mellitus Type 2, Hypertension, Internal Pacemaker Denies:: Diabetes Mellitus Type 1, MRSA, Seizures Other Medical History: Denies: Blood Transfusion Reaction Laterality Cases: Left: Mastectomy, Right: Arthroscopy Hip, Arthroscopy Knee, Total Hip Replacement, Total Knee Replacement Other Surgeries: Yes: Cholecystectomy, Hysterectomy-Total, Pacemaker, Other (CEA , stents) Amputation: No Fractures: No Comment: cholecystectomy - Social History Smoking Status: Never smoker Alcohol Intake: never Alcohol Intake Frequency:: other Occupational Status: retired Housing: house Household Members: none - Psychiatric History Expresses thoughts of harming self/others: None Suicide Plan Description: No Plan Family Hx:: No significant family history ROS Obtained: Yes All systems reviewed & no additional complaints - Constitutional Constitutional: Denies fever(s) - Cardiovascular Cardiovascular: Denies chest pain, Reports irregular heart rhythm, Reports rapid heart rate - Respiratory Respiratory: Yes dyspnea Physical Exam - General General appearance: alert, in no apparent distress - Head Head exam: atraumatic, normocephalic, normal inspection - Eye Eye exam: Present: normal appearance, PERRL, EOMI - ENT ENT exam: Present: normal exam, normal oropharynx, mucous membranes moist, TM's normal bilaterally, normal external ear exam - Neck Neck exam: Present: normal inspection, full ROM, trachea midline. Absent: meningismus, lymphadenopathy - Chest Chest inspection: Present: normal inspection, symmetric chest wall rise. Absent : tenderness - Respiratory Respiratory exam: Present: normal lung sounds bilaterally. Absent: respiratory distress - Cardiovascular Cardiovascular exam: Present: tachycardia, irregular rhythm, other (Heart rate 90s to low 100s on monitor). Absent: JVD - Abdominal Exam Abdominal exam: Present: soft, normal bowel sounds. Absent: distention, tenderness, guarding - Extremities Exam Extremities exam: Present: normal inspection, full ROM, normal capillary refill. Absent: calf tenderness - Back Exam Back exam: Present: normal inspection. Absent: tenderness - Neurological Exam Neurological exam: Present: alert, oriented X3 - Psychiatric Psychiatric exam: Present: normal affect, normal mood - Skin Skin exam: Present: warm, dry, intact, normal color - Lymphatic Lymphatic Findings: no adenopathy
[2017-10-11 21:09] LABS: Basophils # 0.1 K/mm3 (0-0.2); Basophils % 0.8 % (0.1-2.0); Eosinophils # 0.3 K/mm3 (0.0-0.4); Hemoglobin 9.2 g/dL (12.2-16.2); Lymphocytes # 1.2 K/mm3 (0.7-4.5); Lymphocytes % 17.7 K/mm3 (10-50); Mean Corpuscular Hemoglobin 26.4 pg (27.0-31.2); Mean Corpuscular Volume 82.5 fl (81-99); Mean Platelet Volume 7.1 fl (7.4-10.4); Monocytes # 0.4 K/mm3 (0.1-1.0); Monocytes % 6.3 % (1.7-9.3); Neutrophils # 4.7 K/mm3 (1.8-7.8); Neutrophils % 71.2 % (37.0-80.0); Platelet Count 290 K/mm3 (142-424); Red Cell Distribution Width 14.2 % (11.5-17.5); White Blood Count 6.5 K/mm3 (4.8-10.8)
[2017-10-11 21:11] LABS: Hematocrit 28.9 % (37.0-47.0)
[2017-10-11 21:24] LABS: Albumin Level 3.4 gm/dL (3.4-5.0); Albumin/Globulin Ratio 1.1 (1.1-1.8); Anion Gap 13.9 mEq/L (5-15); Bilirubin,Total 0.6 mg/dL (0.2-1.0); Calcium 9.6 mg/dL (8.5-10.1); Globulin 3.2 gm/dl (1.3-3.2); Potassium 4.9 mmoL/L (3.5-5.1); Total Protein,Serum 6.6 gm/dL (6.4-8.2)
[2017-10-11 21:29] LABS: Amylase 60 U/L (25-125)
[2017-10-11 22:12] LABS: INR 2.69 (0.9-1.1); Prothrombin Time 26.9 seconds (9.4-11.8)
[2017-10-12 05:25] LABS: Anion Gap 11.6 mEq/L (5-15); Blood Urea Nitrogen 14 mg/dL (7-18); Calcium 9.3 mg/dL (8.5-10.1); Carbon Dioxide 27 mmol/L (21.0-32.0); Chloride 97 mmol/L (98-107); Glucose 60 mg/dL (74-106); Potassium 3.6 mmoL/L (3.5-5.1); Sodium 132 mmol/L (136-145)
--- NOTE | 2017-10-12 07:27 | Pharmacy Consult Notes ---
[facility] Pharmacy VTE Monitoring - Patient Demographics Admission date: 10/11/17 Report Date: 10/12/17 Time: 07:27 Allergies/Adverse Reactions: Patient Allergies clopidogrel [From Plavix] Allergy (Unknown, Verified 08/03/17 15:20) Iodinated Contrast Media - Oral and [Iodinated Contrast Media - IV Dye] Allergy (Unknown, Verified 08/03/17 15:20) Penicillins Allergy (Unknown, Verified 08/03/17 15:20) tolmetin [From Tolectin] Allergy (Unknown, Verified 08/03/17 15:20) Height: 1.52 m Weight: 69.003 kg Patient Problems: Current Active Problems Hypoglycemia (Acute) Rapid atrial fibrillation (Acute) - VTE Risk Labs: VTE Related Lab Results Hgb 9.2 g/dL (12.2-16.2) L 10/11/17 21:01 Hct 28.9 % (37.0-47.0) L 10/11/17 21:01 Plt Count 290 K/mm3 (142-424) 10/11/17 21:01 PT 26.9 seconds (9.4-11.8) H 10/11/17 20:59 INR 2.69 (0.9-1.1) H 10/11/17 20:59 BUN 14 mg/dL (7-18) 10/12/17 05:00 Creatinine 0.57 mg/dL (0.55-1.02) 10/12/17 05:00 Estimated Creat Clear 46 mL/min (0-300) 10/12/17 05:00 Was VTE Risk Assessment Performed: Yes VTE Score: 4 VTE Risk Level: Low Risk - Prophylaxis VTE Prophylaxis Ordered?: Yes Types of VTE Prophylaxis: Pharmacological Pharmacologic Type: Warfarin - VTE Diagnosis Confirmed Treatment or plan recommended: Continue Current Treatment
--- NOTE | 2017-10-12 08:24 | History & Physical Report ---
*Admission Date: 10/11/17 *Chief complaint: Tachycardia/dyspnea *History of present illness: 82-year-old white female with systolic/diastolic CHF with ejection fraction in the 40% range she also has atrial fibrillation. Has a pacemaker in place, but over the past couple of weeks has had significant medication adjustments because of hyponatremia that necessitated hospital admission last week which resulted in her being discharged with the cessation of her previously prescribed Entresto medication. She also was sent home on restricted diuretic therapy, and tolerated the medication changes well. Went to cardiology clinic 1 week ago and Lasix was discontinued and Cardizem was discontinued because of the possibility of it causing lower extremity edema. Throughout the following week, she has had a couple of events, on Thursday of last week fell at her home striking her right hip, was able to walk afterwards but continues to have some pain in the lateral/trochanteric area of the right side. Last night she began to have feelings of palpitations and tachyarrhythmia , dyspnea and a feeling of "being hot." Came to the emergency department and was found to be in atrial fibrillation in the 120 range, was relatively hypoglycemic in the 60s-of note she had not eaten supper or her afternoon snack because she was feeling poorly-and was found to have elevated BNP levels in the 700 range, compared to 400 range when she was in cardiology clinic early last week. She was given a dose of IV Lasix, p.o. Cardizem and admitted to hospital for observation. [facility] History I have reviewed the patient's past medical history: Yes Medical History: Reports:: Atrial Fibrillation, Congestive Heart Failure, Coronary Artery Disease, Diabetes Mellitus Type 2, Hypertension, Internal Pacemaker Denies:: Cancer, Diabetes Mellitus Type 1, MRSA, Seizures Other Medical History: Reports: Hypothyroidism. Denies: Blood Transfusion Reaction Laterality Cases: Left: Mastectomy, Right: Arthroscopy Hip, Arthroscopy Knee, Total Hip Replacement, Total Knee Replacement Other Surgeries: Yes: Cholecystectomy, Hysterectomy-Total, Pacemaker, Other (CEA , stents) Amputation: No Fractures: No - *Social History Educational Level: Completed High School Smoking Status: Never smoker Alcohol Intake: never Alcohol Intake Frequency:: other Occupational Status: retired Housing: house Household Members: none - Psychiatric History Expresses thoughts of harming self/others: None Suicide Plan Description: No Plan *Family Hx:: No significant family history Review of Systems - Constitutional Reports fatigue, Denies fever(s), Denies headache(s) - Eyes Denies blind spots, Denies blurry vision, Denies change in vision - ENT Reports poor balance - *Cardiovascular Reports chest pain, Reports shortness of breath, Reports shortness of breath with activity, Reports irregular heart rhythm - *Respiratory Denies change in phlegm color, Denies chest congestion, Denies cough, Denies shortness of breath - *Gastrointestinal Denies abdominal pain, Denies belching - *Musculoskeletal Reports joint pain, Denies abnormal walking - Endocrine Reports rapid, pounding, or irregular heartbeat, Denies cold intolerance - Hematologic/Lymphatic Denies easy bleeding, Denies easy bruising Meds Home Medications Medication Instructions Recorded Confirmed Type aspirin 81 mg tablet,delayed 81 mg PO DAILY 05/04/17 10/12/17 History release isosorbide mononitrate ER 60 mg 60 mg PO BID tab 05/04/17 10/12/17 History tablet,extended release 24 hr levothyroxine 75 mcg tablet 75 mcg PO DAILY tab 05/04/17 10/12/17 History lorazepam 0.5 mg tablet 0.5 mg PO HS 05/04/17 10/12/17 History zolpidem 10 mg tablet 10 mg PO DAILYP PRN tab 05/04/17 10/12/17 History bisoprolol fumarate 10 mg tablet 10 mg PO BID tab 07/21/17 10/12/17 History metformin 500 mg tablet 500 mg PO BID 07/21/17 10/12/17 History Loratadine [Claritin 10mg Tablet] 10 mg PO DAILY 10/01/17 10/12/17 History Nitroglycerin [Nitrostat 0.4mg SL 0.4 mg SL Q5MINP PRN 10/01/17 10/12/17 History Tablet] raNITIdine HCl [Ranitidine HCl] 150 mg PO HS 10/01/17 10/12/17 History Potassium Chloride [Klor-con 20 20 meq PO BID 10/11/17 10/12/17 History mEq tablet] Cholecalciferol (Vitamin D3) 1,000 unit PO DAILY 10/12/17 10/12/17 History [Vitamin D3 1,000 Unit Cap] Lansoprazole 15 mg PO DAILY 10/12/17 10/12/17 History Vit C/E/Zn/Coppr/Lutein/Zeaxan 1 each PO BID 10/12/17 10/12/17 History [Preservision Areds 2 Softgel] Warfarin Sodium [Coumadin 2mg 2 mg PO DAILY 10/12/17 10/12/17 History tablet] Allergies Allergy/AdvReac Type Severity Reaction Status Date / Time clopidogrel [From Plavix] Allergy Unknown Verified 08/03/17 15:20 Iodinated Contrast Media - Allergy Unknown Verified 08/03/17 15:20 Oral and [Iodinated Contrast Media - IV Dye] Penicillins Allergy Unknown Verified 08/03/17 15:20 tolmetin [From Tolectin] Allergy Unknown Verified 08/03/17 15:20 Exam Vital signs and Labs for Last 24 Hours: Temp Pulse Resp BP Pulse Ox 98.4 F 97 H 18 189/91 95 10/12/17 07:23 10/12/17 07:23 10/12/17 07:23 10/12/17 07:23 10/12/17 07:23 Laboratory Results - last 24 hr 10/11/17 20:59: PT 26.9 H, INR 2.69 H 10/11/17 21:00: B-Natriuretic Peptide 713 H 10/11/17 21:01: WBC 6.5, RBC 3.50 L, Hgb 9.2 L, Hct 28.9 L, MCV 82.5, MCH 26.4 L , MCHC 32.0, RDW 14.2, Plt Count 290, MPV 7.1 L, Neut % (Auto) 71.2, Lymph % ( Auto) 17.7, [place] % (Auto) 6.3, Eos % (Auto) 4.0, Baso % (Auto) 0.8, Neut # (Auto ) 4.7, Lymph # (Auto) 1.2, [place] # (Auto) 0.4, Eos # (Auto) 0.3, Baso # (Auto) 0.1 10/11/17 21:01: Troponin I < 0.02, Amylase 60 10/11/17 21:01: Sodium 134 L, Potassium 4.9, Chloride 99, Carbon Dioxide 26, Anion Gap 13.9, BUN 16, Creatinine 0.70, Estimated Creat Clear 45, Estimated GFR 80, Est GFR ( Amer) 96, Glucose 54 L, Calcium 9.6, Total Bilirubin 0.6, AST 43 H, ALT 32, Alkaline Phosphatase 99, Total Protein 6.6, Albumin 3.4, Globulin 3.2, Albumin/Globulin Ratio 1.1, Lipase 328 10/11/17 21:01: Lactic Acid 0.7 10/11/17 23:03: POC Glucose 176 H 10/11/17 23:10: Troponin I < 0.02 10/12/17 00:07: POC Glucose 151 H 10/12/17 01:26: POC Glucose 86 10/12/17 01:55: Troponin I < 0.02 10/12/17 05:00: Sodium 132 L, Potassium 3.6 D, Chloride 97 L, Carbon Dioxide 27 , Anion Gap 11.6, BUN 14, Creatinine 0.57, Estimated Creat Clear 46, Estimated GFR 101, Est GFR ( Amer) 122 D, Glucose 60 L, Calcium 9.3, Troponin I < 0.02 10/12/17 06:01: POC Glucose 66 L I & O for Last 24 hours: Intake & Output 10/09/17 10/10/17 10/11/17 10/12/17 11:59 11:59 11:59 11:59 Output Total 1100 / 1100 Balance -1100 / -1100 Weight 152 lb 2 oz Narrative: Patient is pleasant, alert, oriented 3. Pulse rate irregular in the mid 90s. Lungs are clear, abdomen soft, no pedal edema. No hand edema. Good distal pulses and normal perfusion. Normal neurologic exam with normal cranial nerves. Patient is mild tenderness on the trochanter area of the right side but internal and external rotation of the hip is normal. No disfiguring of the hip structure. She is able to flex and extend the hip well. H&P: Result - Labs Labs: Short CBC 10/11/17 Range/Units 21:01 WBC 6.5 (4.8-10.8) K/mm3 Hgb 9.2 L (12.2-16.2) g/dL Hct 28.9 L (37.0-47.0) % Plt Count 290 (142-424) K/mm3 [facility] 10/11/17 10/12/17 21:01 05:00 Sodium 134 L 132 L Potassium 4.9 3.6 D Chloride 99 97 L Carbon Dioxide 26 27 BUN 16 14 Creatinine 0.70 0.57 Glucose 54 L 60 L Calcium 9.6 9.3 Cardiac Enzymes 10/11/17 10/11/17 10/12/17 Range/Units 21:01 23:10 01:55 Troponin I < 0.02 < 0.02 < 0.02 (0.00-0.06) ng/ml 10/12/17 Range/Units 05:00 Troponin I < 0.02 (0.00-0.06) ng/ml Liver Function 10/11/17 Range/Units 21:01 Total Bilirubin 0.6 (0.2-1.0) mg/dL AST 43 H (15-37) U/L ALT 32 (12-78) U/L Alkaline Phosphatase 99 (46-116) U/L Albumin 3.4 (3.4-5.0) gm/dL Assessment and Plan (1) Right hip pain Current visit: Yes Status: Acute Category: Medical Code(s): M25.551 - Pain in right hip (2) Hypoglycemia Current visit: Yes Status: Acute Category: Medical Code(s): E16.2 - Hypoglycemia, unspecified (3) Rapid atrial fibrillation Current visit: Yes Status: Acute Category: Medical Code(s): I48.91 - Unspecified atrial fibrillation - Assessment and plan all Dx Assessment and Plan for all problems:: Check x-ray of right hip. Doubt fracture. Cardiology evaluation to assess for appropriate antiarrhythmic medication in this patient for rate control. She is adequately anticoagulated. Hypoglycemia is concerning. Plan to discontinue her sulfonylurea medication on discharge.
--- NOTE | 2017-10-12 14:41 | Consult Report ---
History of Present Illness Consult date: 10/12/17 Requesting physician: Filemon Che Consult reason: atrial fibrillation Chief complaint: chest pain, SOA Additional Medical History:: 1. History of A. fib/flutter with previous propafenone use A. Chronic and now on coumadin therapy B. History of Dual chamber Pacemaker insertion 2005 with generator change 02/11, [facility] [employer] C. LE edema on high dose diltiazem 2. HTN A. Echo, 03/2017, Moderate biatrial enlargement, normal left ventricular size , mild concentric left ventricular hypertrophy, visually estimated ejection fraction 55% with no obvious regional wall motion abnormality, diastolic parameters are inconclusive. Thickened and calcified aortic valve without Doppler evidence of significant aortic stenosis or aortic insufficiency. Moderate mitral and moderate tricuspid regurgitation, calculated right ventricular systolic pressure is 49 mm Hg consistent with moderate pulmonary hypertension. No significant pericardial effusion noted. 3. Mitral Valve regurgitation, Moderate 4. History of left breast cancer, s/p mastectomy 5. Hypothyroidism 6. Hyperlipidemia 7. History of PE, remote 8. DM, treated for many years 9. Carotid Artery Stenosis A. S/P Right CEA, Dr. Starkey, 10/2016 10. Coronary Artery Disease A. Previous coronary stenting, 2008 and RCA in 2016 B. Cardiac cath, 05/2016, Dr. Marinelli, [facility] ANGIOGRAPHIC RESULTS: 1. The left main artery has an ostial greater than 50% angiographic stenosis which is known to be 20% by intravascular ultrasound 2. The left anterior descending artery has mild mid vessel 20-30% nonflow limiting stenoses 3. The circumflex artery is a codominant vessel and normal 4. The right coronary artery is a codominant vessel and has a stent in the ostial segment with 40% ostial compression. This does not represent in-stent restenosis but rather ostial recoiling giving the anatomic 40% stenosis 5. The JOHN ventriculogram reveals normal 65% 6. The left ventricular end-diastolic pressure 10 mmHg IMPRESSION: 1. Angiographically severe left main disease which is proven by intravascular ultrasound to be mild nonflow limiting stenosis 2. Mild nonflow limiting LAD disease 3. Codominant right coronary artery system that has ostial recoiling giving an external compression of the drug-eluting stent by approximately 40% which is still nonflow limiting 4. Normal ejection fraction 5. Normal left ventricular end-diastolic pressure PLAN: 1. Antianginal medications 2. Risk factor modification History of present illness: 82-year-old white female with systolic/diastolic CHF with ejection fraction in the 40% range she also has atrial fibrillation. Has a pacemaker in place, but over the past couple of weeks has had significant medication adjustments because of hyponatremia that necessitated hospital admission last week which resulted in her being discharged with the cessation of her previously prescribed Entresto medication. She also was sent home on restricted diuretic therapy, and tolerated the medication changes well. Went to cardiology clinic 1 week ago and Lasix was discontinued and Cardizem was discontinued because of the possibility of it causing lower extremity edema. Throughout the following week, she has had a couple of events, on Thursday of last week fell at her home striking her right hip, was able to walk afterwards but continues to have some pain in the lateral/trochanteric area of the right side. Last night she began to have feelings of palpitations and tachyarrhythmia , dyspnea and a feeling of "being hot." Came to the emergency department and was found to be in atrial fibrillation in the 120 range, was relatively hypoglycemic in the 60s-of note she had not eaten supper or her afternoon snack because she was feeling poorly-and was found to have elevated BNP levels in the 700 range, compared to 400 range when she was in cardiology clinic early last week. She was given a dose of IV Lasix, p.o. Cardizem and admitted to hospital for observation. The above per Dr. Che Patient describes some substernal chest pressure and discomfort with radiation in the left arm with a heart rate noted to be rapid yesterday. Symptoms improved with sublingual nitroglycerin at home but did not resolve. This prompted her visit to the emergency department and subsequent admission. Cardiology has been consulted to advise on rate control medication. [facility] History Medical History: Reports:: Atrial Fibrillation, Congestive Heart Failure, Coronary Artery Disease, Diabetes Mellitus Type 2, Hypertension, Internal Pacemaker Denies:: Cancer, Diabetes Mellitus Type 1, MRSA, Seizures Other Medical History: Reports: Hypothyroidism. Denies: Blood Transfusion Reaction Laterality Cases: Left: Mastectomy, Right: Arthroscopy Hip, Arthroscopy Knee, Total Hip Replacement, Total Knee Replacement Other Surgeries: Yes: Cholecystectomy, Hysterectomy-Total, Pacemaker, Other (CEA , stents) Amputation: No Fractures: No - *Social History Educational Level: Completed High School Smoking Status: Never smoker Alcohol Intake: never Alcohol Intake Frequency:: other Occupational Status: retired Housing: house Household Members: none - Psychiatric History Expresses thoughts of harming self/others: None Suicide Plan Description: No Plan *Family Hx:: No significant family history Meds Home Medications Medication Instructions Recorded Confirmed Type aspirin 81 mg tablet,delayed 81 mg PO DAILY 05/04/17 10/12/17 History release isosorbide mononitrate ER 60 mg 60 mg PO BID tab 05/04/17 10/12/17 History tablet,extended release 24 hr levothyroxine 75 mcg tablet 75 mcg PO DAILY tab 05/04/17 10/12/17 History lorazepam 0.5 mg tablet 0.5 mg PO HS 05/04/17 10/12/17 History zolpidem 10 mg tablet 10 mg PO DAILYP PRN tab 05/04/17 10/12/17 History bisoprolol fumarate 10 mg tablet 10 mg PO BID tab 07/21/17 10/12/17 History metformin 500 mg tablet 500 mg PO BID 07/21/17 10/12/17 History Loratadine [Claritin 10mg Tablet] 10 mg PO DAILY 10/01/17 10/12/17 History Nitroglycerin [Nitrostat 0.4mg SL 0.4 mg SL Q5MINP PRN 10/01/17 10/12/17 History Tablet] raNITIdine HCl [Ranitidine HCl] 150 mg PO HS 10/01/17 10/12/17 History Potassium Chloride [Klor-con 20 20 meq PO BID 10/11/17 10/12/17 History mEq tablet] Cholecalciferol (Vitamin D3) 1,000 unit PO DAILY 10/12/17 10/12/17 History [Vitamin D3 1,000 Unit Cap] Vit C/E/Zn/Coppr/Lutein/Zeaxan 1 each PO BID 10/12/17 10/12/17 History [Preservision Areds 2 Softgel] Warfarin Sodium 3 mg PO [id number] 10/12/17 10/12/17 History Warfarin Sodium [Coumadin 2mg 2 mg PO MO 10/12/17 10/12/17 History tablet] Allergies Allergy/AdvReac Type Severity Reaction Status Date / Time clopidogrel [From Plavix] Allergy Unknown Verified 08/03/17 15:20 Iodinated Contrast Media - Allergy Unknown Verified 08/03/17 15:20 Oral and [Iodinated Contrast Media - IV Dye] Penicillins Allergy Unknown Verified 08/03/17 15:20 tolmetin [From Tolectin] Allergy Unknown Verified 08/03/17 15:20 Review of Systems - Constitutional Reports lack of energy, Reports malaise - *Cardiovascular Reports chest pain, Reports shortness of breath with activity - *Respiratory Reports cough, Reports shortness of breath, Reports shortness of breath with activity - *Gastrointestinal Reports bloating, Reports black, tarry stools, Reports nausea - *Genitourinary Denies abnormal periods, Denies difficulty urinating - *Neurologic Reports unsteadiness, Denies abnormal walking, Denies headache(s) Exam Vital signs and Labs for Last 24 Hours: Temp Pulse Resp BP Pulse Ox 98.3 F 85 18 163/70 95 10/12/17 11:39 10/12/17 12:00 10/12/17 11:39 10/12/17 11:39 10/12/17 11:39 Laboratory Results - last 24 hr 10/11/17 20:59: PT 26.9 H, INR 2.69 H 10/11/17 21:00: B-Natriuretic Peptide 713 H 10/11/17 21:01: WBC 6.5, RBC 3.50 L, Hgb 9.2 L, Hct 28.9 L, MCV 82.5, MCH 26.4 L , MCHC 32.0, RDW 14.2, Plt Count 290, MPV 7.1 L, Neut % (Auto) 71.2, Lymph % ( Auto) 17.7, [place] % (Auto) 6.3, Eos % (Auto) 4.0, Baso % (Auto) 0.8, Neut # (Auto ) 4.7, Lymph # (Auto) 1.2, [place] # (Auto) 0.4, Eos # (Auto) 0.3, Baso # (Auto) 0.1 10/11/17 21:01: Troponin I < 0.02, Amylase 60 10/11/17 21:01: Sodium 134 L, Potassium 4.9, Chloride 99, Carbon Dioxide 26, Anion Gap 13.9, BUN 16, Creatinine 0.70, Estimated Creat Clear 45, Estimated GFR 80, Est GFR ( Amer) 96, Glucose 54 L, Calcium 9.6, Total Bilirubin 0.6, AST 43 H, ALT 32, Alkaline Phosphatase 99, Total Protein 6.6, Albumin 3.4, Globulin 3.2, Albumin/Globulin Ratio 1.1, Lipase 328 10/11/17 21:01: Lactic Acid 0.7 10/11/17 23:03: POC Glucose 176 H 10/11/17 23:10: Troponin I < 0.02 10/12/17 00:07: POC Glucose 151 H 10/12/17 01:26: POC Glucose 86 10/12/17 01:55: Troponin I < 0.02 10/12/17 05:00: Sodium 132 L, Potassium 3.6 D, Chloride 97 L, Carbon Dioxide 27 , Anion Gap 11.6, BUN 14, Creatinine 0.57, Estimated Creat Clear 46, Estimated GFR 101, Est GFR ( Amer) 122 D, Glucose 60 L, Calcium 9.3, Troponin I < 0.02 10/12/17 06:01: POC Glucose 66 L 10/12/17 11:40: POC Glucose 92 I & O for Last 24 hours: Intake & Output 10/10/17 10/11/17 10/12/17 10/13/17 11:59 11:59 11:59 11:59 Output Total 1999 Balance -1999 Weight 152 lb 2.009 oz - *Routine Neck Exam Absent: JVD, carotid bruit - *Routine Respiratory Exam Present: decreased breath sounds Comments: faint basilar rales - *Routine Cardiovascular Exam Present: murmur, irregular rhythm - *Routine Abdominal Exam Present: soft. Absent: tenderness - *Routine Extremities Exam Present: edema - *Routine Neurological Exam Present: alert, oriented X3, moving all extremities Assessment and Plan (1) Right hip pain Current visit: Yes Status: Acute Category: Medical Code(s): M25.551 - Pain in right hip (2) Hypoglycemia Current visit: Yes Status: Acute Category: Medical Code(s): E16.2 - Hypoglycemia, unspecified (3) Rapid atrial fibrillation Current visit: Yes Status: Acute Category: Medical Code(s): I48.91 - Unspecified atrial fibrillation (4) Cardiac pacemaker in situ Current visit: No Status: Chronic Category: Medical Code(s): Z95.0 - Presence of cardiac pacemaker (5) Coronary arteriosclerosis Current visit: No Status: Chronic Category: Medical Code(s): I25.10 - Atherosclerotic heart disease of ute coronary artery without angina pectoris (6) On anticoagulant therapy Current visit: No Status: Chronic Category: Medical Code(s): Z79.01 - terminal gauger supervisor (current) use of anticoagulants - Assessment and plan all Dx Assessment and Plan for all problems:: 1. Discussed with Dr. Marinelli 2. Recommend adding verapamil 240 mg long-acting once daily 3. Continue bisoprolol 10 mg twice daily 4. No attempt will be made to restore sinus rhythm, patient has had 2 previous cardioversions and has previously broken through on high-dose propafenone. 5. If rate control cannot be obtained medically, then the next option would be AV node ablation. 6. Obtain an echocardiogram to evaluate left ventricular size and function. 7. Recommend observation overnight and with plans for discharge home tomorrow 8. We will give additional dose of Lasix today due to basilar rales, cough and slight edema of the lower extremities
--- NOTE | 2017-10-12 21:31 | Cardiology Report ---
PROCEDURE: 2-D M-mode and color Doppler study INDICATIONS FOR THE TEST: Chest pain COPD Heart Murmur Tobacco Smoking Palpitations Fatigue Syncope Edema Hypertension+Diabetes Mellitus Rheumatic Fever SOB WITT Obesity Hyperlipidemia + Family History HD Additional History AFIB, CAD , PACER 2006, CHF, PATIENT INFORMATION HEIGHT: 59 WEIGHT:152 GENDER: Female B/P:163/70 2-D/M-MODE INTERPRETATION: 2-D MEASUREMENTS OBSERVED VALUES IN CMS Right Ventricular Dimension (RVDd) 2.7 Interventricular Septum (Thickness)(IVsd) 1.5 Left Ventricular Internal Dimensions(LVIDd) 4.2 Left Ventricular Posterior Wall (Thickness)(LVPWd) 0.9 Aortic Root 2.8 Aortic Cusp Separation 1.6 Left Atrial Dimensions (LAD) 4.8 2D 1. Left atrium is moderately enlarged, left ventricle is normal size, mild concentric left ventricular hypertrophy, visually estimated ejection fraction 55% with no obvious regional wall motion abnormality. 2. The right atrium is moderately enlarged, right ventricle is mildly dilated with normal contractility, there is a pacemaker lead seen in the right ventricle. 3. The aortic valve is thickened and calcified leaflet continue to display mobility. 4. The mitral and tricuspid valve leaflets are minimally thickened. 5. The pulmonic valve is poorly visualized 6. No significant pericardial effusion noted. DOPPLER INTERROGATION: Doppler interrogation of the aortic, mitral and tricuspid valvular presence of moderate to severe mitral and moderate to severe tricuspid regurgitation, calculated right ventricular systolic pressure is 61 mmHg consistent with moderate pulmonary hypertension, inferior vena cava is mildly dilated without significant inspiratory collapse. CONCLUSION: 1. Moderate biatrial enlargement, normal left ventricular size, mild concentric left ventricular hypertrophy, visually estimated ejection fraction 55% with no obvious regional wall motion abnormality. 2. Moderate to severe mitral and moderate to severe tricuspid regurgitation, calculated right ventricular systolic pressure is 61 mmHg consistent with moderate pulmonary hypertension. 3. No significant pericardial effusion noted.
[2017-10-13 07:42] VITALS: BP 171/81
--- NOTE | 2017-10-13 08:02 | Progress Note ---
Subjective Date: 10/13/17 Time: 07:57 Principal diagnosis: A. fib Interval history: 82 yo WF in room in NAD. States she is feeling better today. Slept well last night. No chest pain or SOA. Wants to go home. Heart rate better controlled with the addition of Verapamil to bisoprolol. Exam Vital signs and Labs for Last 24 Hours: Temp Pulse Resp BP Pulse Ox 97.2 F L 90 18 171/81 96 10/13/17 07:40 10/13/17 07:40 10/13/17 07:40 10/13/17 07:40 10/13/17 07:40 Laboratory Results - last 24 hr 10/12/17 11:40: POC Glucose 92 10/12/17 16:48: POC Glucose 93 10/12/17 19:39: POC Glucose 240 H 10/13/17 06:11: POC Glucose 80 I & O for Last 24 hours: Intake & Output 10/10/17 10/11/17 10/12/17 10/13/17 11:59 11:59 11:59 11:59 Intake Total 720 / 720 Output Total 1999 2200 / 2200 Balance -1999 / -1480 / -1480 Weight 152 lb 2.009 oz 153 lb 3 oz - *Routine Respiratory Exam Present: CTA bilaterally - *Routine Cardiovascular Exam Present: irregular rhythm Progress Note: A&P (1) Right hip pain Status: Acute Current Visit: Yes (2) Hypoglycemia Status: Acute Current Visit: Yes (3) Rapid atrial fibrillation Status: Acute Current Visit: Yes (4) Cardiac pacemaker in situ Status: Chronic Current Visit: No (5) Coronary arteriosclerosis Status: Chronic Current Visit: No (6) On anticoagulant therapy Status: Chronic Current Visit: No Assessment and Plan for All Diagnoses:: OK for discharge from Cardiology standpoint on combo of Verapamil and bisoprolol. Lasix for severe MR and recurrent CHF with close monitoring of renal status. Echo shows preserved LVEF. Follow up in one week. Will not use DES/ARB or Entresto due to hyponatremia and cough.
--- NOTE | 2017-10-13 08:12 | Discharge Summary ---
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 Has a pacemaker in place, but over the past couple of weeks has had significant medication adjustments because of hyponatremia that necessitated hospital admission last week which resulted in her being discharged with the cessation of her previously prescribed Entresto medication. She also was sent home on restricted diuretic therapy, and tolerated the medication changes well. Went to cardiology clinic 1 week ago and Lasix was discontinued and Cardizem was discontinued because of the possibility of it causing lower extremity edema. Throughout the following week, she has had a couple of events, on Thursday of last week fell at her home striking her right hip, was able to walk afterwards but continues to have some pain in the lateral/trochanteric area of the right side. Last night she began to have feelings of palpitations and tachyarrhythmia , dyspnea and a feeling of "being hot." Came to the emergency department and was found to be in atrial fibrillation in the 120 range, was relatively hypoglycemic in the 60s-of note she had not eaten supper or her afternoon snack because she was feeling poorly-and was found to have elevated BNP levels in the 700 range, compared to 400 range when she was in cardiology clinic early last week. She was given a dose of IV Lasix, p.o. Cardizem and admitted to hospital for observation. Hospital Course Hospital Course: Patient was admitted, ruled out for myocardial infarction. Atrial fibrillation was treated with 1 dose of p.o. Cardizem and then IV Lasix which resulted in a good diuresis and symptomatic improvement. Echocardiogram revealed suppressed ejection fraction as previously noted. Cardiology decided to try verapamil in addition to Lasix, and we held DES inhibitor/ARB because of persistent hyponatremia. She did well with the verapamil and this morning feels good. Wishes to go home. Please see cardiology note for examination. Objective Vital signs: Temp Pulse Resp BP Pulse Ox 97.2 F L 90 18 171/81 96 10/13/17 07:40 10/13/17 07:40 10/13/17 07:40 10/13/17 07:40 10/13/17 07:40 Narrative: Patient has irregular rhythm but normal rate. No swelling. Alert, pleasant, oriented. Results Labs on day of discharge: Labs from last 24 hours 10/13/17 10/12/17 10/12/17 06:11 19:39 16:48 POC Glucose 80 240 H 93 10/12/17 11:40 POC Glucose 92 DS: Diagnosis - Discharge Diagnosis (1) Right hip pain Status: Chronic Problem details: X-rays negative (2) Hypoglycemia Status: Resolved (3) Rapid atrial fibrillation Status: Resolved (4) Cardiac pacemaker in situ Status: Chronic (5) Coronary arteriosclerosis Status: Chronic (6) On anticoagulant therapy Status: Chronic Discharge Plan - Patient Discharge Instructions ACTIVITY: Continue current activity DIET: continue same diet Patient Instructions: Hypoglycemia, Heart Failure, Atrial Fibrillation - Follow up Plan Follow up with: Gui Marinelli MD [Staff Physician] - 1 week Filemon Che MD [Primary Care Provider] - 2 weeks Disposition: Home, Self-Long-Term Medications: Home Medications Medication Instructions Recorded Confirmed Type aspirin 81 mg tablet,delayed 81 mg PO DAILY 05/04/17 10/12/17 History release isosorbide mononitrate ER 60 mg 60 mg PO BID tab 05/04/17 10/12/17 History tablet,extended release 24 hr levothyroxine 75 mcg tablet 75 mcg PO DAILY tab 05/04/17 10/12/17 History lorazepam 0.5 mg tablet 0.5 mg PO HS 05/04/17 10/12/17 History zolpidem 10 mg tablet 10 mg PO DAILYP PRN tab 05/04/17 10/12/17 History bisoprolol fumarate 10 mg tablet 10 mg PO BID tab 07/21/17 10/12/17 History metformin 500 mg tablet 500 mg PO BID 07/21/17 10/12/17 History Loratadine [Claritin 10mg Tablet] 10 mg PO DAILY 10/01/17 10/12/17 History Nitroglycerin [Nitrostat 0.4mg SL 0.4 mg SL Q5MINP PRN 10/01/17 10/12/17 History Tablet] raNITIdine HCl [Ranitidine HCl] 150 mg PO HS 10/01/17 10/12/17 History Potassium Chloride [Klor-con 20 20 meq PO BID 10/11/17 10/12/17 History mEq tablet] Cholecalciferol (Vitamin D3) 1,000 unit PO DAILY 10/12/17 10/12/17 History [Vitamin D3 1,000 Unit Cap] Vit C/E/Zn/Coppr/Lutein/Zeaxan 1 each PO BID 10/12/17 10/12/17 History [Preservision Areds 2 Softgel] Warfarin Sodium 3 mg PO SUTUWETHFRSA 10/12/17 10/12/17 History Warfarin Sodium [Coumadin 2mg 2 mg PO MO 10/12/17 10/12/17 History tablet] Prescriptions/Medication Reconciliation: New Furosemide [Lasix 20mg tab] 20 mg PO DAILY #30 tab Verapamil HCl [Calan SR 240mg tablet] 240 mg PO DAILY #30 tablet.er Continue isosorbide mononitrate ER 60 mg tablet,extended release 24 hr 60 mg PO BID tab levothyroxine 75 mcg tablet 75 mcg PO DAILY tab lorazepam 0.5 mg tablet 0.5 mg PO HS zolpidem 10 mg tablet 10 mg PO DAILYP PRN tab PRN Reason: Sleep metformin 500 mg tablet 500 mg PO BID aspirin 81 mg tablet,delayed release 81 mg PO DAILY bisoprolol fumarate 10 mg tablet 10 mg PO BID tab Nitroglycerin [Nitrostat 0.4mg SL Tablet] 0.4 mg SL Q5MINP PRN PRN Reason: Chest Pain Loratadine [Claritin 10mg Tablet] 10 mg PO DAILY raNITIdine HCl [Ranitidine HCl] 150 mg PO HS Glimepiride [Amaryl] 2 mg PO DAILY #0 Potassium Chloride [Klor-con 20 mEq tablet] 20 meq PO BID Cholecalciferol (Vitamin D3) [Vitamin D3 1,000 Unit Cap] 1,000 unit PO DAILY Vit C/E/Zn/Coppr/Lutein/Zeaxan [Preservision Areds 2 Softgel] 1 each PO BID Warfarin Sodium 3 mg PO SUTUWETHFRSA Warfarin Sodium [Coumadin 2mg tablet] 2 mg PO MO
== END 2017-10-13 09:03 | disposition home or self-care (01) ==
LOC: ER 20:23 → 2ND 20:23
PROVIDERS: ADMIT Internal Medicine Adolescent Medicine; ATTEND Internal Medicine Adolescent Medicine

== ENCOUNTER 2019-06-01 14:28 | Observation (INO) ==
[2019-06-01 15:03] LABS: Microscopic, Urine URINE MICROSCOPIC (MICROSCOPIC)
[2019-06-01 15:06] LABS: Basophils # 0.1 K/mm3 (0-0.2); Basophils % 0.9 % (0.1-2.0); Eosinophils # 0.2 K/mm3 (0.0-0.4); Eosinophils % 3.2 % (0.1-12.0); Hematocrit 36.1 % (37.0-47.0); Hemoglobin 12.1 g/dL (12.2-16.2); Lymphocytes # 1.3 K/mm3 (0.7-4.5); Mean Corpuscular HGB Conc 33.5 g/dL (31.8-35.4); Mean Corpuscular Volume 80.7 fl (81-99); Mean Platelet Volume 8.5 fl (7.4-10.4); Monocytes # 0.6 K/mm3 (0.1-1.0); Monocytes % 7.9 % (1.7-9.3); Neutrophils % 70.2 % (37.0-80.0); Platelet Count 287 K/mm3 (142-424); Red Blood Count 4.47 M/mm3 (4.20-5.40); Red Cell Distribution Width 14.8 % (11.5-17.5); White Blood Count 7.2 K/mm3 (4.8-10.8)
[2019-06-01 15:10] LABS: Appearance,Urine CLEAR (Clear); Bilirubin,Urine Negative (Negative); Blood, Urine Negative (Negative); Color,Urine YELLOW (Yellow); Glucose,Urine (UA) Negative (Negative); Ketones,Urine Negative (Negative); Leukocyte Esterase,Urine 1+ (Negative); PH,Urine 5.5 (5.0-8.5); Protein,Urine Negative (Negative); Specific Gravity, Urine <= 1.005 (1.005-1.030); Urobilinogen,Urine 0.2 EU/dl (0.2)
[2019-06-01 15:14] LABS: Albumin Level 3.1 gm/dL (3.4-5.0); Anion Gap 8.8 mEq/L (5-15); Bilirubin,Total 0.3 mg/dL (0.2-1.0); Calcium 8.6 mg/dL (8.5-10.1); Globulin 3.2 gm/dl (1.3-3.2); Total Protein,Serum 6.3 gm/dL (6.4-8.2)
[2019-06-01 15:22] LABS: Bacteria,Urine Trace /lpf; WBC,Urine Occasional #/hpf (0-3)
--- NOTE | 2019-06-01 15:30 | Emergency Department Note ---
ED Disposition Clinical Impression: Hyponatremia, Hypokalemia, Abnormal INR Disposition: Admitted As Inpatient Condition on Discharge: Serious Referrals: Filemon Che MD [Primary Care Provider] - - Critical Care Critical Care Time: No Attestation: On 06/01/19, the high probability of a clinically significant, sudden or life threatening deterioration of the following system(s) required my full and direct attention, intervention and personal management. The time I documented below is in addition to time spent performing reported procedures but includes the following listed in this critical care notation. Medical Decision Making - Rogelio Inquiry Pt receiving controlled substance: No Rogelio was queried for this patient: No Vital Signs: 06/01/19 14:39 Temperature 98.7 F Temperature Source Oral Pulse Rate [Right Radial] 74 Respiratory Rate 18 Blood Pressure [Right Arm] 137/89 Blood Pressure Mean [Right Arm] 105 02 Sat by Pulse Oximetry 98 Oxygen Delivery Method Room Air - Lab Data Lab Results 06/01/19 14:45: Troponin I < 0.02 06/01/19 14:45: WBC 7.2, RBC 4.47, Hgb 12.1 L, Hct 36.1 L, MCV 80.7 L, MCH 27.1, MCHC 33.5, RDW 14.8, Plt Count 287, MPV 8.5, Neut % (Auto) 70.2, Lymph % (Auto) 18.0, [place] % (Auto) 7.9, Eos % (Auto) 3.2, Baso % (Auto) 0.9, Neut # (Auto) 5.0, Lymph # (Auto) 1.3, [place] # (Auto) 0.6, Eos # (Auto) 0.2, Baso # (Auto) 0.1 06/01/19 14:45: Sodium 124 L, Potassium 2.8 L*, Chloride 86 L, Carbon Dioxide 32, Anion Gap 8.8, BUN 24 H, Creatinine 1.16 H, Estimated Creat Clear 39, Estimated GFR 44 L, Est GFR ( Amer) 54 L, Glucose 147 H, Calcium 8.6, Total Bilirubin 0.3, AST 39 H, ALT 24, Alkaline Phosphatase 99, Total Protein 6.3 L, Albumin 3.1 L, Globulin 3.2, Albumin/Globulin Ratio 1.0 L 06/01/19 14:45: Lactate 2.8 H 06/01/19 14:55: Urine Color Yellow, Urine Appearance Clear, Urine pH 5.5, Ur Specific [place] <= 1.005, Urine Protein Negative, Urine Glucose (UA) Negative, Urine Ketones Negative, Urine Blood Negative, Urine Nitrate Negative, Urine Bilirubin Negative, Urine Urobilinogen 0.2, Ur Leukocyte Esterase 1+ A, Urine WBC Occasional, Ur Squamous Epith Cells 3-5, Urine Bacteria Trace 06/01/19 14:55: Influenza Type A Ag Negative, Influenza Type B Ag Negative Result diagrams: 06/01/19 14:45 06/01/19 14:45 Orders (Tests/Meds): ED MEDICATIONS Discontinued Medications Generic Name Dose Route Start Last Admin Trade Name Freq PRN Reason Stop Dose Admin Sodium Chloride 500 mls @ 999 mls/hr 06/01/19 15:00 06/01/19 14:56 Sod Chlor 0.9% 1000ml Bag IV 06/01/19 15:30 999 mls/hr .Q31M KIM Administration Potassium Chloride 40 meq 06/01/19 15:19 Klor-Con 20meq Tablet PO 06/01/19 15:20 ONCE ONE ORDERS Category Date Time Status XR chest portable Stat Exams 06/01/19 14:47 Ordered Troponin I Q3H Lab 06/01/19 18:00 Ordered Troponin I Q3H Lab 06/01/19 21:00 Ordered Blood Culture Stat Micro 06/01/19 14:45 Received Urine Culture Stat Micro 06/01/19 14:55 Received Medical Decision Narrative: Patient presented to the emergency department for weakness and confusion. Family states that she has had hyponatremia multiple times and she is showing the symptoms at this time. She was aggressively diuresed by Dr. Marinelli and during this she developed a viral gastroenteritis on last Thursday and has thrown off her fluid balance for further. In clinic her INR was 5, she currently takes warfarin. We will hold her warfarin on admission. Her sodium is 124, she was given 500 mL's of IV fluids in the ER. Her potassium was 2.8 and she was sh owing PVCs on her twelve-lead EKG she was given 40 mEq of potassium orally. We will reassess her labs on admission. Discussed with Dr. Che who will admit the patient. General Adult HPI - General Chief complaint: Weakness Stated complaint: potassium and sodium low Time Seen by Provider: 06/01/19 15:10 Mode of Arrival: Wheelchair Limitations: No Limitations Description of Symptoms (Recalled from ER Triage Doc. by RN): pt reports to ed from specialty clinic with c/o low sodium and potassium levels. pt states that she has recently had a stomach virus and she is now feeling generalized weakness. - History of Present Illness HPI narrative: Patient presented to the emergency department for weakness and some confusion. She has a history of pulmonary hypertension has been being aggressively diuresed by Dr. Marinelli. She has an implanted fluid volume status monitor to assist with this. Unfortunately on Thursday of last week she developed a viral gastroenteritis that significantly alter the amount of her oral intake. Since then the daughter has noticed the symptoms of hyponatremia which she has seen before and her and brought her to the emergency department for evaluation. - Related Data Home Medications Medication Instructions Recorded Confirmed aspirin 81 mg tablet,delayed 81 mg PO DAILY 05/04/17 06/01/19 release lorazepam 0.5 mg tablet 0.5 mg PO HS 05/04/17 06/01/19 zolpidem 10 mg tablet 10 mg PO DAILYP PRN tab 05/04/17 06/01/19 Loratadine [Claritin 10mg Tablet] 10 mg PO DAILY 10/01/17 06/01/19 Cholecalciferol (Vitamin D3) 1,000 unit PO DAILY 10/12/17 06/01/19 [Vitamin D3 1,000 Unit Cap] Vit C/E/Zn/Coppr/Lutein/Zeaxan 1 each PO BID 10/12/17 06/01/19 [Preservision Areds 2 Softgel] Warfarin Sodium 3 mg PO SUTUWETHFRSA 10/12/17 06/01/19 Warfarin Sodium [Coumadin 2mg 2 mg PO MO 10/12/17 06/01/19 tablet] levothyroxine 75 mcg tablet 75 mcg PO DAILY tab 11/30/17 06/01/19 metformin 500 mg tablet 500 mg PO DAILY tab 09/06/18 06/01/19 isosorbide mononitrate 60 mg 30 mg PO DAILY tab 05/20/19 06/01/19 tablet,extended release 24 hr lansoprazole 30 mg capsule,delayed 30 mg PO DAILY cap 05/20/19 06/01/19 release Previous Rx's Medication Instructions Recorded hydrochlorothiazide 12.5 mg tablet 12.5 mg PO DAILY #30 tab 04/25/19 torsemide 20 mg tablet 20 mg PO DAILY #30 tab 05/16/19 bisoprolol fumarate 10 mg tablet 10 mg PO DAILY #120 tab 05/20/19 nitroglycerin 0.4 mg sublingual 0.4 mg SUBLINGUAL Q5MINP PRN #30 05/20/19 tablet tab ondansetron HCl 4 mg tablet 4 mg PO Q8H PRN #10 tab 05/20/19 spironolactone 25 mg tablet 25 mg PO Q OTHER DAY #30 tab 05/20/19 Allergies Allergy/AdvReac Type Severity Reaction Status Date / Time clopidogrel [From Plavix] Allergy Unknown Verified 06/01/19 14:45 Iodinated Contrast Media Allergy Unknown Verified 06/01/19 14:45 [Iodinated Contrast Media - IV Dye] Penicillins Allergy Unknown Verified 06/01/19 14:45 tolmetin [From Tolectin] Allergy Unknown Verified 06/01/19 14:45 [facility] History - Hepatitis A Screen Drug use history?: No High risk sexual behaviors?: No History of sexually transmitted infection?: No Currently employed?: No Childcare worker?: No Do you have indoor plumbing?: Yes Do you have electricity?: Yes Attestation statement:: This patient has been screened for Hepatitis A risk factors. Medical History: Reports:: Atrial Fibrillation, Carotid Stenosis, Congestive Heart Failure, Coronary Artery Disease, Diabetes Mellitus Type 2, Hyperlipidemia, Hypertension, Internal Pacemaker Denies:: Cancer, Diabetes Mellitus Type 1, MRSA, Seizures Other Medical History: Reports: Anemia, Hypothyroidism. Denies: Blood Transfusion Reaction Laterality Cases: Left: Mastectomy, Right: Arthroscopy Hip, Arthroscopy Knee, Total Hip Replacement, Total Knee Replacement Other Surgeries: Yes: No Previous Surgery, Cardiac Catheterization, Cholecystectomy, Hysterectomy-Total, Pacemaker, Other (CEA, stents) Amputation: No Fractures: No Comment: cholecystectomy - Social History Smoking Status: Never smoker Alcohol Intake: never Alcohol Intake Frequency:: other Substance Use Type: denies use Occupational Status: retired Housing: house Household Members: none Family Hx:: No significant family history ROS Obtained: Yes All systems reviewed & no additional complaints Physical Exam - General General appearance: alert - Respiratory Respiratory exam: Present: normal lung sounds bilaterally - Cardiovascular Cardiovascular exam: Present: regular rate - Neurological Exam Neurological exam: Present: alert, oriented X3
--- NOTE | 2019-06-01 21:08 | History & Physical Report ---
*Admission Date: 06/01/19 *Chief complaint: Weakness and dehydration *History of present illness: Patient with known CHF and with Cardiomem in place. Seeing [facility] cardilogy who has been titrating up diuretics and BP meds for pulmonary HTN based on cardiomem numbers. Patient has had hyponatremia for all of April in cards offices and recently had a viral GE syndrome with diarrhea and vomiting. IN [facility] clinic today and sent to ER for eval of hyponatremia and hypokalemia and then admtted to my service for management of the same. Daughter reports MS confusion and lethargy over the past week. [facility] History Medical History: Reports:: Arrhythmia (afib), Atrial Fibrillation, Cancer (breast approx 2005/2006), Carotid Stenosis, Congestive Heart Failure, Coronary Artery Disease, Diabetes Mellitus Type 2, Hyperlipidemia, Hypertension, Internal Pacemaker Denies:: Diabetes Mellitus Type 1, MRSA, Seizures *Have you ever received a pneumonia vaccine?: Yes *Have you received a flu vaccine this season?: Yes Other Medical History: Reports: Anemia, Hypothyroidism. Denies: Blood Transfusion Reaction Laterality Cases: Left: Mastectomy, Right: Arthroscopy Hip, Arthroscopy Knee, Total Hip Replacement, Total Knee Replacement Other Surgeries: Yes: No Previous Surgery, Cardiac Catheterization, Cholecystectomy, Hysterectomy-Total, Pacemaker, Other (CEA, stents) Amputation: No Fractures: No - *Social History Educational Level: Completed High School Smoking Status: Never smoker Alcohol Intake: never Alcohol Intake Frequency:: other Substance Use Type: denies use *Occupational Status:: retired Housing: house Household Members: none *Travel in the last 8 weeks: None Family Hx:: No significant family history Review of Systems - Review of Systems Review of systems:: pertinent systems reviewed and negative unless documented below - Constitutional Reports fatigue, Reports lack of energy, Reports malaise - ENT Reports poor balance, Reports dizziness - *Cardiovascular Reports shortness of breath with activity, Reports irregular heart rhythm - *Gastrointestinal Reports change in stools, Reports loose stools, Reports nausea - *Musculoskeletal Reports muscle weakness Meds Home Medications Medication Instructions Recorded Confirmed Type aspirin 81 mg tablet,delayed 81 mg PO DAILY 05/04/17 06/01/19 History release lorazepam 0.5 mg tablet 0.5 mg PO HS 05/04/17 06/01/19 History zolpidem 10 mg tablet 10 mg PO DAILYP PRN tab 05/04/17 06/01/19 History Loratadine [Claritin 10mg Tablet] 10 mg PO DAILY 10/01/17 06/01/19 History Cholecalciferol (Vitamin D3) 1,000 unit PO DAILY 10/12/17 06/01/19 History [Vitamin D3 1,000 Unit Cap] Vit C/E/Zn/Coppr/Lutein/Zeaxan 1 each PO BID 10/12/17 06/01/19 History [Preservision Areds 2 Softgel] Warfarin Sodium 3 mg PO SUTUWETHFRSA 10/12/17 06/01/19 History Warfarin Sodium [Coumadin 2mg 2 mg PO MO 10/12/17 06/01/19 History tablet] levothyroxine 75 mcg tablet 75 mcg PO DAILY tab 11/30/17 06/01/19 History metformin 500 mg tablet 500 mg PO DAILY tab 09/06/18 06/01/19 History isosorbide mononitrate 60 mg 30 mg PO DAILY tab 05/20/19 06/01/19 History tablet,extended release 24 hr lansoprazole 30 mg capsule,delayed 30 mg PO DAILY cap 05/20/19 06/01/19 History release nitroglycerin 0.4 mg sublingual 0.4 mg SUBLINGUAL Q5MINP PRN #30 05/20/19 06/01/19 Rx tablet tab ondansetron HCl 4 mg tablet 4 mg PO Q8H PRN #10 tab 05/20/19 06/01/19 Rx Spironolactone [Spironolactone 25 mg PO Q OTHER DAY 06/01/19 06/01/19 History 25mg Tablet] Torsemide [Demadex] 20 mg PO DAILY 06/01/19 06/01/19 History bisoproloL fumarate [Bisoprolol 10 mg PO DAILY 06/01/19 06/01/19 History 10mg Tablet] hydroCHLOROthiazide 12.5 mg PO DAILY 06/01/19 06/01/19 History [Hydrochlorothiazide 12.5mg Tab] Allergies Allergy/AdvReac Type Severity Reaction Status Date / Time clopidogrel [From Plavix] Allergy Unknown Verified 06/01/19 14:45 Iodinated Contrast Media Allergy Unknown Verified 06/01/19 14:45 [Iodinated Contrast Media - IV Dye] Penicillins Allergy Unknown Verified 06/01/19 14:45 tolmetin [From Tolectin] Allergy Unknown Verified 06/01/19 14:45 Exam Vital signs and Labs for Last 24 Hours: Temp Pulse Resp BP Pulse Ox 98.3 F 76 16 145/61 H 100 06/01/19 20:00 06/01/19 20:00 06/01/19 20:00 06/01/19 20:00 06/01/19 20:00 Laboratory Results - last 24 hr 06/01/19 14:45: Troponin I < 0.02 06/01/19 14:45: WBC 7.2, RBC 4.47, Hgb 12.1 L, Hct 36.1 L, MCV 80.7 L, MCH 27.1, MCHC 33.5, RDW 14.8, Plt Count 287, MPV 8.5, Neut % (Auto) 70.2, Lymph % (Auto) 18.0, [place] % (Auto) 7.9, Eos % (Auto) 3.2, Baso % (Auto) 0.9, Neut # (Auto) 5.0, Lymph # (Auto) 1.3, [place] # (Auto) 0.6, Eos # (Auto) 0.2, Baso # (Auto) 0.1 06/01/19 14:45: Sodium 124 L, Potassium 2.8 L*, Chloride 86 L, Carbon Dioxide 32, Anion Gap 8.8, BUN 24 H, Creatinine 1.16 H, Estimated Creat Clear 39, Estimated GFR 44 L, Est GFR ( Amer) 54 L, Glucose 147 H, Calcium 8.6, Total Bilirubin 0.3, AST 39 H, ALT 24, Alkaline Phosphatase 99, Total Protein 6.3 L, Albumin 3.1 L, Globulin 3.2, Albumin/Globulin Ratio 1.0 L 06/01/19 14:45: Lactate 2.8 H 06/01/19 14:55: Urine Color Yellow, Urine Appearance Clear, Urine pH 5.5, Ur Specific [place] <= 1.005, Urine Protein Negative, Urine Glucose (UA) Negative, Urine Ketones Negative, Urine Blood Negative, Urine Nitrate Negative, Urine Bilirubin Negative, Urine Urobilinogen 0.2, Ur Leukocyte Esterase 1+ A, Urine WBC Occasional, Ur Squamous Epith Cells 3-5, Urine Bacteria Trace 06/01/19 14:55: Influenza Type A Ag Negative, Influenza Type B Ag Negative 06/01/19 18:02: Troponin I < 0.02 06/01/19 19:35: Lactate 2.7 H I & O for Last 24 hours: Intake & Output 05/30/19 05/31/19 06/01/19 06/02/19 11:59 11:59 11:59 11:59 Weight 152 lb 8 oz - Constitutional no acute distress - *Routine HEENT Exam ENT: Present: mucous membranes dry - *Routine Neck Exam Present: supple. Absent: JVD - *Routine Respiratory Exam Present: CTA bilaterally - *Routine Cardiovascular Exam Present: murmur, irregular rhythm - *Routine Abdominal Exam Present: soft, normoactive bowel sounds - *Routine Extremities Exam Absent: clubbing, edema - *Routine Neurological Exam Present: CN II-XII intact Assessment and Plan (1) Systolic CHF with reduced left ventricular function, NYHA class 3 Current visit: Yes Status: Acute Category: Medical Code(s): I50.20 - Unspecified systolic (congestive) heart failure Over diuresed and hyponatremic even before GI illness. Will need less diuretics on discharge. (2) Abnormal INR Current visit: Yes Status: Acute Category: Medical Code(s): R79.1 - Abnormal coagulation profile Hold warfarin. Follow with clinical pharmacist. (3) Hypokalemia Current visit: Yes Status: Acute Category: Medical Code(s): E87.6 - Hypokalemia Orally replaced. Hold diuretics. Check in AM (4) Hyponatremia Current visit: Yes Status: Acute Category: Medical Code(s): E87.1 - Hypo- osmolality and hyponatremia Isotonc fluids overnight. Check in AM. Hold diuretics. (5) Dizziness Current visit: No Status: Acute Category: Medical Code(s): R42 - Dizziness and giddiness
--- NOTE | 2019-06-02 07:20 | Pharmacy Consult Notes ---
[facility] Pharmacy VTE Monitoring - Patient Demographics Admission date: 06/01/19 Report Date: 06/02/19 Time: 07:19 Allergies/Adverse Reactions: Patient Allergies clopidogrel [From Plavix] Allergy (Unknown, Verified 06/01/19 14:45) Iodinated Contrast Media [Iodinated Contrast Media - IV Dye] Allergy (Unknown, Verified 06/01/19 14:45) Penicillins Allergy (Unknown, Verified 06/01/19 14:45) tolmetin [From Tolectin] Allergy (Unknown, Verified 06/01/19 14:45) Height: 1.52 m Weight: 68.748 kg Patient Problems: Current Active Problems Abnormal INR (Acute) Systolic CHF with reduced left ventricular function, NYHA class 3 (Acute) Hyponatremia (Acute) Hypokalemia (Acute) - VTE Risk Labs: VTE Related Lab Results Hgb 12.1 g/dL (12.2-16.2) L 06/01/19 14:45 Hct 36.1 % (37.0-47.0) L 06/01/19 14:45 Plt Count 287 K/mm3 (142-424) 06/01/19 14:45 BUN 24 mg/dL (7-18) H 06/01/19 14:45 Creatinine 1.16 mg/dL (0.55-1.02) H 06/01/19 14:45 Estimated Creat Clear 39 mL/min (50-200) 06/01/19 14:45 Was VTE Risk Assessment Performed: Yes VTE Score: 7 VTE Risk Level: Moderate Risk - Prophylaxis VTE Prophylaxis Ordered?: Yes Types of VTE Prophylaxis: TEDS Knee High Location of Applied Device: Bilateral Lower Extremeties
[2019-06-02 08:08] LABS: INR 6.33 (0.9-1.1); Prothrombin Time 60.3 seconds (9.4-11.8)
[2019-06-02 08:52] LABS: Anion Gap 8.7 mEq/L (5-15); Calcium 8.7 mg/dL (8.5-10.1)
--- NOTE | 2019-06-02 09:18 | Discharge Summary ---
General - General Admission date:: 06/01/19 Discharge date: 06/02/19 HPI HPI: Patient with known CHF and with Cardiomem in place. Seeing [facility]ilogy who has been titrating up diuretics and BP meds for pulmonary HTN based on cardiomem numbers. Patient has had hyponatremia for all of April in cards offices and recently had a viral GE syndrome with diarrhea and vomiting. IN [facility] clinic today and sent to ER for eval of hyponatremia and hypokalemia and then admtted to my service for management of the same. Daughter reports MS confusion and lethargy over the past week. Hospital Course Hospital Course: Patient was admitted, found to be hyponatremic, hypokalemic and elevated INR was noted. Medicines were held and she was given gentle IV hydration overnight. This morning she feels much better, has been able to eat and her sodium and potassium have improved. Her INR is again elevated but she has no stigmata of bleeding. Has no hematuria and is had a normal bowel movement without blood. She has been able to get up and go to the bathroom by herself. Objective Vital signs: Temp Pulse Resp BP Pulse Ox 98.0 F 77 16 166/78 H 99 06/02/19 04:00 06/02/19 04:00 06/02/19 04:00 06/02/19 04:00 06/02/19 04:00 Narrative: Patient is pleasant. Heart rate regular. Murmur as previously noted. No ankle edema. Skin turgor much improved. Neurologically intact, oropharynx moist. No JVD. Abdomen soft and nontender. Moves all extremities well. ENT exam clear with no JVD. Results Labs on day of discharge: Labs from last 24 hours 06/02/19 06/02/19 06/01/19 07:25 07:25 21:17 WBC RBC Hgb Hct MCV MCH MCHC RDW Plt Count MPV Neut % (Auto) Lymph % (Auto) Wise % (Auto) Eos % (Auto) Baso % (Auto) Neut # (Auto) Lymph # (Auto) Wise # (Auto) Eos # (Auto) Baso # (Auto) PT 60.3 H INR 6.33 H Sodium 130 L Potassium 3.7 D Chloride 93 L Carbon Dioxide 32 Anion Gap 8.7 BUN 14 D Creatinine 0.64 D Estimated Creat Clear 45 Estimated GFR 88 Est GFR ( Amer) 107 D Glucose 91 D Lactate 2.3 H Calcium 8.7 Magnesium 1.4 Total Bilirubin AST ALT Alkaline Phosphatase Troponin I Total Protein Albumin Globulin Albumin/Globulin Ratio Urine Color Urine Appearance Urine pH Ur Specific [place] Urine Protein Urine Glucose (UA) Urine Ketones Urine Blood Urine Nitrate Urine Bilirubin Urine Urobilinogen Ur Leukocyte Esterase Urine WBC Ur Squamous Epith Cells Urine Bacteria Influenza Type A Ag Influenza Type B Ag 06/01/19 06/01/19 06/01/19 21:17 19:35 18:02 WBC RBC Hgb Hct MCV MCH MCHC RDW Plt Count MPV Neut % (Auto) Lymph % (Auto) Wise % (Auto) Eos % (Auto) Baso % (Auto) Neut # (Auto) Lymph # (Auto) Wise # (Auto) Eos # (Auto) Baso # (Auto) PT INR Sodium Potassium Chloride Carbon Dioxide Anion Gap BUN Creatinine Estimated Creat Clear Estimated GFR Est GFR ( Amer) Glucose Lactate 2.7 H Calcium Magnesium Total Bilirubin AST ALT Alkaline Phosphatase Troponin I < 0.02 < 0.02 Total Protein Albumin Globulin Albumin/Globulin Ratio Urine Color Urine Appearance Urine pH Ur Specific [place] Urine Protein Urine Glucose (UA) Urine Ketones Urine Blood Urine Nitrate Urine Bilirubin Urine Urobilinogen Ur Leukocyte Esterase Urine WBC Ur Squamous Epith Cells Urine Bacteria Influenza Type A Ag Influenza Type B Ag 06/01/19 06/01/19 06/01/19 14:55 14:55 14:45 WBC RBC Hgb Hct MCV MCH MCHC RDW Plt Count MPV Neut % (Auto) Lymph % (Auto) Wise % (Auto) Eos % (Auto) Baso % (Auto) Neut # (Auto) Lymph # (Auto) Wise # (Auto) Eos # (Auto) Baso # (Auto) PT INR Sodium Potassium Chloride Carbon Dioxide Anion Gap BUN Creatinine Estimated Creat Clear Estimated GFR Est GFR ( Amer) Glucose Lactate 2.8 H Calcium Magnesium Total Bilirubin AST ALT Alkaline Phosphatase Troponin I Total Protein Albumin Globulin Albumin/Globulin Ratio Urine Color Yellow Urine Appearance Clear Urine pH 5.5 Ur Specific [place] <= 1.005 Urine Protein Negative Urine Glucose (UA) Negative Urine Ketones Negative Urine Blood Negative Urine Nitrate Negative Urine Bilirubin Negative Urine Urobilinogen 0.2 Ur Leukocyte Esterase 1+ A Urine WBC Occasional Ur Squamous Epith Cells 3-5 Urine Bacteria Trace Influenza Type A Ag Negative Influenza Type B Ag Negative 06/01/19 06/01/19 06/01/19 14:45 14:45 14:45 WBC 7.2 RBC 4.47 Hgb 12.1 L Hct 36.1 L MCV 80.7 L MCH 27.1 MCHC 33.5 RDW 14.8 Plt Count 287 MPV 8.5 Neut % (Auto) 70.2 Lymph % (Auto) 18.0 Wise % (Auto) 7.9 Eos % (Auto) 3.2 Baso % (Auto) 0.9 Neut # (Auto) 5.0 Lymph # (Auto) 1.3 Wise # (Auto) 0.6 Eos # (Auto) 0.2 Baso # (Auto) 0.1 PT INR Sodium 124 L Potassium 2.8 L* Chloride 86 L Carbon Dioxide 32 Anion Gap 8.8 BUN 24 H Creatinine 1.16 H Estimated Creat Clear 39 Estimated GFR 44 L Est GFR ( Amer) 54 L Glucose 147 H Lactate Calcium 8.6 Magnesium Total Bilirubin 0.3 AST 39 H ALT 24 Alkaline Phosphatase 99 Troponin I < 0.02 Total Protein 6.3 L Albumin 3.1 L Globulin 3.2 Albumin/Globulin Ratio 1.0 L Urine Color Urine Appearance Urine pH Ur Specific [place] Urine Protein Urine Glucose (UA) Urine Ketones Urine Blood Urine Nitrate Urine Bilirubin Urine Urobilinogen Ur Leukocyte Esterase Urine WBC Ur Squamous Epith Cells Urine Bacteria Influenza Type A Ag Influenza Type B Ag DS: Diagnosis - Discharge Diagnosis (1) Systolic CHF with reduced left ventricular function, NYHA class 3 Status: Chronic (2) Abnormal INR Status: Acute (3) Hypokalemia Status: Resolved (4) Hyponatremia Status: Resolved (5) Dizziness Status: Resolved Discharge Plan - Patient Discharge Instructions ACTIVITY: Continue current activity DIET: continue same diet Patient Instructions: DI for Dehydration -- Adult, DI for Hyponatremia, Hyponatremia-Adult - Follow up Plan Follow up with: Filemon Che MD [Primary Care Provider] - 06/04/19 Disposition: Home, Self-Halfway Medications: Home Medications Medication Instructions Recorded Confirmed Type aspirin 81 mg tablet,delayed 81 mg PO DAILY 05/04/17 06/01/19 History release lorazepam 0.5 mg tablet 0.5 mg PO HS 05/04/17 06/01/19 History zolpidem 10 mg tablet 10 mg PO DAILYP PRN tab 05/04/17 06/01/19 History Loratadine [Claritin 10mg Tablet] 10 mg PO DAILY 10/01/17 06/01/19 History Cholecalciferol (Vitamin D3) 1,000 unit PO DAILY 10/12/17 06/01/19 History [Vitamin D3 1,000 Unit Cap] Vit C/E/Zn/Coppr/Lutein/Zeaxan 1 each PO BID 10/12/17 06/01/19 History [Preservision Areds 2 Softgel] Warfarin Sodium 3 mg PO [id number] 10/12/17 06/01/19 History Warfarin Sodium [Coumadin 2mg 2 mg PO MO 10/12/17 06/01/19 History tablet] levothyroxine 75 mcg tablet 75 mcg PO DAILY tab 11/30/17 06/01/19 History metformin 500 mg tablet 500 mg PO DAILY tab 09/06/18 06/01/19 History isosorbide mononitrate 60 mg 30 mg PO DAILY tab 05/20/19 06/01/19 History tablet,extended release 24 hr lansoprazole 30 mg capsule,delayed 30 mg PO DAILY cap 05/20/19 06/01/19 History release nitroglycerin 0.4 mg sublingual 0.4 mg SUBLINGUAL Q5MINP PRN #30 05/20/19 06/01/19 Rx tablet tab ondansetron HCl 4 mg tablet 4 mg PO Q8H PRN #10 tab 05/20/19 06/01/19 Rx Spironolactone [Spironolactone 25 mg PO Q OTHER DAY 06/01/19 06/01/19 History 25mg Tablet] Torsemide [Demadex] 20 mg PO DAILY 06/01/19 06/01/19 History bisoproloL fumarate [Bisoprolol 10 mg PO DAILY 06/01/19 06/01/19 History 10mg Tablet] hydroCHLOROthiazide 12.5 mg PO DAILY 06/01/19 06/01/19 History [Hydrochlorothiazide 12.5mg Tab] Prescriptions/Medication Reconciliation: Continued lorazepam 0.5 mg tablet 0.5 mg PO HS zolpidem 10 mg tablet 10 mg PO DAILYP PRN tab PRN Reason: Sleep levothyroxine 75 mcg tablet 75 mcg PO DAILY tab metformin 500 mg tablet 500 mg PO DAILY tab ondansetron HCl 4 mg tablet 4 mg PO Q8H PRN #10 tab PRN Reason: nausea isosorbide mononitrate 60 mg tablet,extended release 24 hr 30 mg PO DAILY tab lansoprazole 30 mg capsule,delayed release 30 mg PO DAILY cap aspirin 81 mg tablet,delayed release 81 mg PO DAILY nitroglycerin 0.4 mg sublingual tablet 0.4 mg SUBLINGUAL Q5MINP PRN #30 tab PRN Reason: Chest Pain Loratadine [Claritin 10mg Tablet] 10 mg PO DAILY Cholecalciferol (Vitamin D3) [Vitamin D3 1,000 Unit Cap] 1,000 unit PO DAILY Vit C/E/Zn/Coppr/Lutein/Zeaxan [Preservision Areds 2 Softgel] 1 each PO BID Spironolactone [Spironolactone 25mg Tablet] 25 mg PO Q OTHER DAY Torsemide [Demadex] 20 mg PO DAILY bisoproloL fumarate [Bisoprolol 10mg Tablet] 10 mg PO DAILY Discontinued Warfarin Sodium 3 mg PO SUTUWETHFRSA Warfarin Sodium [Coumadin 2mg tablet] 2 mg PO MO hydroCHLOROthiazide [Hydrochlorothiazide 12.5mg Tab] 12.5 mg PO DAILY Other Amb Orders: Basic Metabolic Panel Time Frame: 06/04/19, Location: None Selected Complete Blood Count Auto Diff Location: None Selected Prothrombin Time INR Time Frame: 06/04/19, Location: None Selected - Problem Reconciliation Problems Reviewed?: Yes
[2019-06-02 09:54] LABS: Basophils % 0.4 % (0.1-2.0); Eosinophils # 0.3 K/mm3 (0.0-0.4); Eosinophils % 4.1 % (0.1-12.0); Hemoglobin 12.2 g/dL (12.2-16.2); Lymphocytes # 1.2 K/mm3 (0.7-4.5); Lymphocytes % 19.7 % (10-50); Mean Corpuscular Volume 81.5 fl (81-99); Mean Platelet Volume 9.1 fl (7.4-10.4); Monocytes # 0.5 K/mm3 (0.1-1.0); Monocytes % 7.6 % (1.7-9.3); Neutrophils # 4.3 K/mm3 (1.8-7.8); Neutrophils % 68.3 % (37.0-80.0); Platelet Count 210 K/mm3 (142-424); Red Blood Count 4.42 M/mm3 (4.20-5.40); Red Cell Distribution Width 14.9 % (11.5-17.5); White Blood Count 6.2 K/mm3 (4.8-10.8)
--- NOTE | 2019-06-02 15:30 | Electrocardiograph Report ---
APPROVED REPORT Exam: Resting ECG HR:79 bpm ECG Measurements Heart Rate 79 AXES QRSd 82 QRS -17 QT 400 T231 QTc 458 <Conclusion> Demand pacemaker, interpretation is based on intrinsic rhythm Atrial fibrillation with premature ventricular or aberrantly conducted complexes Minimal voltage criteria for LVH, may be normal variant Marked ST abnormality, possible inferolateral subendocardial injury Abnormal ECG Electronically signed by : Filemon Che, 06/02/2019 15:29:57
== END 2019-06-02 10:46 | disposition home or self-care (01) ==
LOC: 2ND 14:28 → ER 14:28 → 2ND 16:49
PROVIDERS: ADMIT Internal Medicine Adolescent Medicine; ATTEND Internal Medicine Adolescent Medicine
DX: I27.20 Pulmonary hypertension, unspecified; Z79.84 Long term (current) use of oral hypoglycemic drugs; E87.1 Hypo-osmolality and hyponatremia; Z88.0 Allergy status to penicillin; Z91.041 Radiographic dye allergy status; Z79.899 Other long term (current) drug therapy; Z79.82 Long term (current) use of aspirin; Z87.39 Personal history of other diseases of the musculoskeletal system and connective tissue; E03.9 Hypothyroidism, unspecified; R79.1 Abnormal coagulation profile; Z85.3 Personal history of malignant neoplasm of breast; R42 Dizziness and giddiness; Z79.01 Long term (current) use of anticoagulants; E11.9 Type 2 diabetes mellitus without complications; Z88.8 Allergy status to other drugs, medicaments and biological substances; I50.20 Unspecified systolic (congestive) heart failure; D64.9 Anemia, unspecified; I48.91 Unspecified atrial fibrillation; I65.29 Occlusion and stenosis of unspecified carotid artery; Z95.0 Presence of cardiac pacemaker; I11.0 Hypertensive heart disease with heart failure; E87.6 Hypokalemia; E78.5 Hyperlipidemia, unspecified; Z90.710 Acquired absence of both cervix and uterus; Z90.12 Acquired absence of left breast and nipple
CPT/HCPCS: 36415; 71010; 71045; 80048; 80053; 81001; 83605; 83735; 84484; 85025; 85610; 87040; 87086; 87088; 87186; 87275; 87276; 93005; 96365; 99285; G0378